=== PATIENT | male | born 1970 | race Caucasian/White ===

== ENCOUNTER → 2023-11-27 | Outpatient (CLI) | payer BC, SELFPAY ==
[2023-11-27 17:40] LABS: Absolute Neutrophil Count 4.6 X10^3/uL (2.0-7.7); Basophil# 0.08 X10^3/uL; Eosinophil# 0.37 X10^3/uL; Eosinophils% 4.6 % (0-5); Hematocrit 46.3 % (40-54); Hemoglobin 15.1 g/dL (13.0-16.5); Lymphocyte % 29.7 % (19-41); Mean Corp Hgb Conc 32.6 g/dL (32-36); Mean Corpuscular Hgb 28.8 pg (27.0-32.0); Mean Corpuscular Volume 88.4 fL (80-94); Mean Platelet Vol. 12.1 fl (6.2-12.0); Monocyte# 0.59 X10^3/uL; Monocyte% 7.3 % (0-10); NRBC Flagged by Analyzer 0 % (0-5); Neutrophil # 4.62 X10^3/uL (2.7-7.7); Neutrophil % 57.2 % (47-70); Platelet Count 235 K/mm3 (150-450); RBC Distribution Width CV 12.9 % (11.6-14.6); RBC Distribution Width SD 41.7 fl (35.1-43.9); Red Blood Count 5.24 M/mm3 (4.6-6.2); White Blood Count 8.1 K/mm3 (4.4-11.0)
[2023-11-27 18:16] LABS: ALB/GLOB Ratio 1.1 RATIO (0.9-2.4); AST(SGOT) 16 U/L (15-37); Alanine Aminotransfer ALT/SGPT 25 U/L (16-61); Albumin, Serum 3.6 g/dL (3.2-5.0); Alkaline Phosphatase 102 U/L (45-117); Anion Gap 7 (5-15); BUN 15 mg/dL (7-18); BUN/Creat Ratio 11.4 RATIO (10-20); Calcium,Total 8.7 mg/dL (8.5-10.1); Chloride 109 mmol/L (98-107); Cholesterol 189 mg/dL (200); Creatinine, Serum 1.32 mg/dL (0.70-1.30); EST Glomerular Filtration Rate 60 mL/min (>60); Est Glom Filt Rate - Afr Amer 73 mL/min (>60); Globulin 3.2 g/dL (2.2-4.2); Glucose 102 mg/dL (74-106); High Density Lipoprotein 41 mg/dL; PSA,Total - Annual Screen 0.44 ng/mL (0.00-4.00); Potassium 3.8 mmol/L (3.5-5.1); Protein, Total 6.8 g/dL (6.4-8.2); Sodium Level 141 mmol/L (136-145); Triglycerides 207 mg/dL; Very Low Density Lipoprotein 41 mg/dL (5-40)
[2023-11-27 18:31] LABS: Microalbumin,Random Urine 5.3 mg/L (NO RANGE EST.); Microalbumin:Creatinine Ratio 4.4 mg/g CRE (<30 mg/g CRE)
== END | disposition home or self-care (01) ==
LOC: MFPLAB 17:00
PROVIDERS: PCP Family Medicine; Visit Provider Family Medicine
DX: Z12.5 Encounter for screening for malignant neoplasm of prostate (principal); F17.200 Nicotine dependence, unspecified, uncomplicated; I10 Essential (primary) hypertension; Z13.220 Encounter for screening for lipoid disorders
CPT/HCPCS: 36415; 80053; 80061; 82043; 82570; 84153; 85025; G0103

== ENCOUNTER → 2024-01-11 | Outpatient (CLI) | payer BC, SELFPAY ==
--- NOTE | 2024-01-11 06:58 | CT_ITS ---
EXAM: CT CHEST, LUNG CANCER SCREENING WITHOUT INTRAVENOUS CONTRAST CLINICAL INDICATION: tobacco use, nicotine abuse TECHNIQUE: Helically acquired images were obtained of the chest without intravenous contrast using low dose (LDCT) lung cancer screening protocol. This CT exam was performed using one or more of the following dose reduction techniques: automated exposure control, adjustment of the mA and/or kV according to patient size, and/or use of iterative reconstruction technique. COMPARISON: No relevant prior studies available. FINDINGS: LUNGS AND PLEURAL SPACES: Paraseptal and centrilobular emphysematous changes of lungs are noted. No evidence of a lung mass or suspicious nodule. No pleural effusion or thickening. No pneumothorax. HEART: Normal. Heart size is normal. No pericardial effusion. No significant coronary artery calcifications. MEDIASTINUM: Normal. No mediastinal or hilar adenopathy. Esophagus is unremarkable. No hiatal hernia. THYROID: Normal. No thyroid nodules or calcification. BONES/JOINTS: No suspicious lytic or blastic abnormality. VASCULATURE: Normal. Thoracic aorta is non-dilated. LYMPH NODES: Normal. No enlarged lymph nodes. CT/Low Dose CT Lung Screening IMPRESSION: 1. No evidence of a lung mass or pulmonary nodule. 2. Pulmonary emphysema. Lung-RADS score: 1S - Negative. Additional clinically significant or potentially clinically significant findings are described. Recommend continued annual screening with a low-dose CT (LDCT) in 12 months. Electronically Signed: Jaret Rodriguez MD at 9:33 EDT ,
== END | disposition home or self-care (01) ==
PROVIDERS: PCP Family Medicine; Referring Provider Family Medicine; Visit Provider Family Medicine
DX: F17.200 Nicotine dependence, unspecified, uncomplicated (principal)
CPT/HCPCS: 71271

== ENCOUNTER 2024-03-21 06:43 | Day surgery (SDC) | payer OTHER, SELFPAY ==
[2024-03-21] VITALS (8 sets, daily range): BP systolic 85–139; BP diastolic 58–86; PULSE 65–86; RESP 16–18; TEMP 36.2–36.8; O2SAT 98–100; BMI 20.3
[2024-03-21] MEDS: Lactated Ringers 1,000 ML 15 ML IV (06:57)
--- NOTE | 2024-03-21 07:08 | H&P.OPEN ---
[facility] - General General Date of Service: 03/21/24 HPI Narrative JARED DEJESUS, is a 53 M who presents for screening colonoscopy due to family history of colon cancer. Patient had colonoscopy 5 years ago in [place] normal per patient. Patient's father diagnosed with colon cancer in his 60s. Patient has bowel movements daily denies any blood. Patient denies any chronic abdominal pain/nausea/vomiting/reflux. [facility] Medical History Broken teeth Alcohol use Blood disorder Easy bruising Smoker Chronic cough Blackout Cardiology follow-up encounter History of stress test Family history of malignant neoplasm of colon in father HTN (hypertension) Hx of colonic polyps Home Medications ?Medication ?Instructions ?Recorded ?Last Taken ?Type amlodipine 5 mg tablet 5 mg PO DAILY 01/25/24 Unknown History benazepril 10 mg tablet 10 mg PO DAILY 01/25/24 Unknown History cholecalciferol (vitamin D3) 50 50 mcg PO DAILY 03/14/24 Unknown History mcg (2,000 unit) capsule (Vitamin D3) Allergy/AdvReac Type Severity Reaction Status Date / Time No Known Allergies Allergy Verified 03/21/24 06:54 Family History Father Colon cancer Surgical History Hx of colonoscopy Social History household members: spouse current occupational status: employed 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 Smoking Status: Current every day smoker tobacco type: cigarettes alcohol intake: current details: occasional alcohol substance use type: does not use Past Medical/Surgical History Planned Operation Planned Operative Procedure(s): CSCOPE OA Previous Hospitalizations/Surgeries HX Hospitalizations: No Any Problems With Anesthesia: No You/Your Family Experience Fever (Hyperthermia) With Anes: No Cholinesterase deficiency: No Cardiovascular Hx Hypertension: Yes (CONTROLLED WITH MEDS) Respiratory Hx Sleep Apnea: No Hx Respiratory Tract Infection/Cold (presently): No Do You Snore Loudly (louder than talking or can be heard): No Do You Often Feel Tired/ Fatigued/ Sleepy Dring Daytime?: No Has Anyone Observed You Stop Breathing During Sleep?: No Result (for STOP score): Negative Smoking Status: Current every day smoker Neurological Does patient have nerve stimulator: No Reproduction : No Miscellaneous Recent Exposure to Contagious Disease: No Allergies No Known Allergies Allergy (Verified 03/21/24 06:54) Discharge Is Pt Admitted From a Longterm, or a Usp: No Who Could Help: After D/C, Where Do you Plan to Go: Return Home Vital Signs Vital Signs Vital Signs: 03/21/24 06:55 03/21/24 06:55 Temperature 98.3 F Temperature Source Temporal Pulse Rate 86 Respiratory Rate 16 Respiratory Pattern Normal Blood Pressure 139/86 H Blood Pressure Mean 103 Blood Pressure Source Monitor Blood Pressure Position Semi-Fowlers Blood Pressure Location Right Arm Pulse Ox 100 Weight Weight: 130 lb 1.164 oz Body Mass Index (BMI) 20.3 Physical Exam Const alert, oriented x3 and no apparent distress HEENT normocephalic and head/scalp atraumatic Resp normal respiratory effort Cardio regular rate GI soft to palpation and non-tender; Negative for non-distended Palpation: Negative for guarding Extremity no clubbing, cyanosis or edema Skin no rashes or lesions noted Neuro CN's II-XII intact bilaterally Psych mental status grossly normal Assessment & Plan Assessment/Plan (1) Encounter for screening for malignant neoplasm of colon: Surgery Risks - Colonoscopy I discussed with the patient the risks of the procedure: Yes Risks Include but are not Limited To: Risks include but are not limited to: Bleeding, perforation requiring further surgery, inability to complete colonoscopy requiring barium enema.
--- NOTE | 2024-03-21 07:16 | PCM.PRE.AN2 ---
ASA Classification* ASA Classification ASA Classification: 2 Assessment & Plan Anesthesia* Anesthesia Assessment Anesthesia Assessment: Discussed sedation and/or anesthesia options, risks, benefits, and alternatives with patient/parents/legal guardian/POA. Questions invited. The patient/parents/legal guardian/POA seems to understand and agrees to proceed with anesthesia plan. Reviewed the physical assessment, medical history, allergy history and patient home medications list prior to surgery/procedure/anesthetic and documented any changes. Performed airway and anesthesia risk assessments. Anesthesia Type Anesthesia Type: MAC (see written pre anesthesia record for complete assessment) Anesthesia Focused Assessment* Temperature: 98.3 F Pulse Rate: 86 Blood Pressure: 139/86 Respiratory Rate: 16 Pulse Ox: 100 Airway Assessment Mouth opens: >3 cm Mallampati Score: II Focused Labs Anesthesia Preop lab: CBC WBC 8.1 K/mm3 (4.4-11.0) 11/27/23 17:01 RBC 5.24 M/mm3 (4.6-6.2) 11/27/23 17:01 Hgb 15.1 g/dL (13.0-16.5) 11/27/23 17:01 Hct 46.3 % (40-54) 11/27/23 17:01 Plt Count 235 K/mm3 (150-450) 11/27/23 17:01 CHEMISTRY Potassium 3.8 mmol/L (3.5-5.1) 11/27/23 17:01 Sodium 141 mmol/L (136-145) 11/27/23 17:01 BUN 15 mg/dL (7-18) 11/27/23 17:01 Creatinine 1.32 mg/dL (0.70-1.30) H 11/27/23 17:01 Glucose 102 mg/dL (74-106) 11/27/23 17:01 COAG Pre-Assessment Diagnosis/Proposed Procedure Planned Operative Procedure(s): CSCOPE OA Anesthesia History Anesthesia History - frame sample and pattern supervisor: Anesthesia History - frame sample and pattern supervisor Hx Hospitalization No 03/21/24 07:09 Any Problems With Anesthesia No 03/21/24 07:09 Cholinesterase deficiency No 03/21/24 07:09 You/Your Family Experience No 03/21/24 07:09 fever (hyperthermia) with Relationship Recent Exposure to Contagious No 03/21/24 07:09 Disease Does patient have nerve No 03/21/24 07:09 stimulator Patient instructed to have device shut off --Does patient have Pacemaker No 03/21/24 06:55 or ICD? When Was Last Pacemaker Check QUESTION #4 FULL TEXT: You/Your Family Experience fever (hyperthermia) with Anesthesia Last Oral Intake Last Oral intake: Last Oral Intake NPO since Meds taken in AM with sips of water? Meds patient instructed to take am of surgery PONV PONV - frame sample and pattern supervisor: PONV - frame sample and pattern supervisor Female No 03/14/24 12:09 HX of Motion Sickness No 03/14/24 12:09 HX of N/V After Surgery No 03/14/24 12:09 Non-Smoker No 03/14/24 12:09 Duration of Surgery greater No 03/14/24 12:09 than 60 minutes Number of Risk Factors PONV Score Height & Weight Height & Weight: Anesthesia: Height & Weight Height 5 ft 7 in 03/21/24 06:55 Weight: 59 kg 03/21/24 06:55 Body Mass Index (BMI) 20.3 03/21/24 06:55 Respiratory Assessment Respiratory Assessment - frame sample and pattern supervisor: Respiratory Tract Infection Hx - frame sample and pattern supervisor Hx Respiratory Tract Infection No 03/21/24 07:09 STOP Sleep Apnea STOP Sleep Apnea - frame sample and pattern supervisor: STOP Sleep Apnea - frame sample and pattern supervisor Hx Hypertension Yes: CONTROLLED WITH MEDS 03/21/24 07:09 Hx Sleep Apnea No 03/21/24 07:09 CPAP BIPAP Do you snore loudly (louder No 03/21/24 07:09 than talking or can be heard Do you often feel tired/ No 03/21/24 07:09 fatigued/ sleepy during daytime? Has anyone observed you stop No 03/21/24 07:09 breathing during sleep? STOP Results Negative 03/21/24 07:09 QUESTION #5 FULL TEXT : Do you snore loudly (louder than talking or can be heard through closed doors)? 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 Specify any problems Hx of Preganancy in last 3 N/A 03/14/24 12:09 Months Nurse Filling Out Transfusion DSCHRIBER 03/14/24 12:09 & Questions: Date: 03/14/24 03/14/24 12:09 Time: 12:11 03/14/24 12:09 Patient unable to answer at this time (ie. confused, unrespo /Reproduction History /Reproductive History - frame sample and pattern supervisor: /Reproductive Hx- frame sample and pattern supervisor Hx Now No 03/21/24 07:09 Gestational Age (in weeks): EDC: Hx Hx Para Hx Section SAB No 03/14/24 12:09 Active Medications Active Medications: Current Medications Generic Name Dose Route Start Last Admin Trade Name Freq PRN Reason Stop Dose Admin Lactated Ringer's 1,000 mls @ 15 mls/hr 03/21/24 07:00 03/21/24 06:57 IV 15 mls/hr .Q48H BARON Administration PFSH Medical History Broken teeth Alcohol use Blood disorder Easy bruising Smoker Chronic cough Blackout Cardiology follow-up encounter History of stress test Family history of malignant neoplasm of colon in father HTN (hypertension) Hx of colonic polyps Home Medications ?Medication ?Instructions ?Recorded ?Last Taken ?Type amlodipine 5 mg tablet 5 mg PO DAILY 01/25/24 Unknown History benazepril 10 mg tablet 10 mg PO DAILY 01/25/24 Unknown History cholecalciferol (vitamin D3) 50 50 mcg PO DAILY 03/14/24 Unknown History mcg (2,000 unit) capsule (Vitamin D3) Allergy/AdvReac Type Severity Reaction Status Date / Time No Known Allergies Allergy Verified 03/21/24 06:54 Family History Father Colon cancer Surgical History Hx of colonoscopy Social History household members: spouse current occupational status: employed 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
--- NOTE | 2024-03-21 08:30 | COLBX_PTH ---
PATIENT: JARED DEJESUS Jr. LOC: EN U#:[id number] AGE/SX: 53/M ROOM: RE03/21/[address]: Dr. Sabrina Echols MD : 1970 BED: DIS: 03/21/2024 SPEC #: [id number] RECD: 03/21/24 10:08 STATUS: ALTAGRACIA MIRIAM #: [id number] ZITA: 03/21/24 08:[address]: Sabrina Echols DEPT: SURGICAL PATHOLOGY RECD BY: Jessika Packer ENTERED: 03/21/24 11:23 SP TYPE: COLON BX OTHR DR: Dr. German Baptiste MD Tissues: COLON BIOPSY Procedures: Surgery Specimen Level IV HEADER OPERATION: Colonoscopy, biopsy PRE-OP DIAGNOSIS: Encounter for screening for malignant neoplasm of colon TISSUE SUBMITTED: Rectum polyp biopsy- multiple MICROSCOPIC DIAGNOSIS Rectum polyp, biopsy: Fragment of tubular adenoma. Fragments of hyperplastic polyp. AM/mr 03/22/2024 COMMENT Case has been reviewed in consultation with Dr. Sykes who concurs with the above diagnosis. IDC:RENALDO MICROSCOPIC DESCRIPTION Slides are reviewed. GROSS DESCRIPTION Received in fixative is one container labeled with the patient's name and designated Rectum polyp. The specimen consists of multiple irregular fragments of light rhodes soft tissue that in aggregate measure 1.5 x 0.4 x 0.1 cm. The specimen is totally submitted in one cassette. RENALDO/ 03/21/2024 TC:5 CPT:71066
--- NOTE | 2024-03-21 09:00 | PCM.POST.ANE ---
Anesthesia: Postop Eval I Current Vital Signs Temperature: 97.2 F Pulse Rate: 67 Blood Pressure: 88/62 Respiratory Rate: 16 Pulse Ox: 99 Oxygen Delivery Method: Room Air Assessment Airway patent: Yes Spontaneous unlabored respirations: Yes Mental status: Asleep nausea: No Vomiting: No Anesthesia Complication: No Fluid Hydration Crystalloid volume administer (ml): 800 Total IV fluid infused: 800 Progress Note Anesthesia document: Postop Eval 1 completed: Yes
--- NOTE | 2024-03-21 09:05 | OP.COLON_ITS ---
Patient Name: Huy Negron Procedure Date: 03/21/2024 8:24 AM Date of : 1970 Age: 53 Procedure: Colonoscopy Indications: Screening in patient at increased risk: Family history of 1st-degree relative with colorectal cancer Providers: Sabrina Echols MD Referring MD: German Baptiste Medicines: Monitored Anesthesia Care Patient Profile: Last Colonoscopy: 5 years ago. Complications: No immediate complications. Procedure: Pre-Anesthesia Assessment: - Prior to the procedure, a History and Physical was performed, and patient medications and allergies were reviewed. The patient's tolerance of previous anesthesia was also reviewed. The risks and benefits of the procedure and the sedation options and risks were discussed with the patient. All questions were answered, and informed consent was obtained. Prior Anticoagulants: The patient has taken no anticoagulant or antiplatelet agents. ASA Grade Assessment: Per anesthesia. After reviewing the risks and benefits, the patient was deemed in satisfactory condition to undergo the procedure. After I obtained informed consent, the scope was passed under direct vision. Throughout the procedure, the patient's blood pressure, pulse, and oxygen saturations were monitored continuously. The Colonoscope was introduced through the anus and advanced to the cecum, identified by appendiceal orifice and ileocecal valve. The colonoscopy was performed without difficulty. The patient tolerated the procedure well. The quality of the bowel preparation was good. Scope In: 8:40:51 AM Scope Withdrawal Time 0 hours 10 minutes 40 seconds Scope Out: 8:55:33 AM Total Procedure Duration Time 0 hours 14 minutes 42 seconds Findings: The perianal and digital rectal examinations were normal. Multiple sessile polyps were found in the rectum. The polyps were less than 5 mm in size. These polyps were removed with a cold biopsy forceps. Resection and retrieval were complete. The exam was otherwise without abnormality on direct and retroflexion views. Impression: - Multiple less than 5 mm polyps in the rectum, removed with a cold biopsy forceps. Resected and retrieved. - The examination was otherwise normal on direct and retroflexion views. Recommendation: - Discharge patient to home. - Resume previous diet. - Continue present medications. - Await pathology results. - Repeat colonoscopy in 3 - 5 years for surveillance based on pathology results. Procedure Code(s): --- Professional --- 37807, PT, Colonoscopy, flexible; with biopsy, single or multiple Diagnosis Code(s): --- Professional --- Z80.0, Family history of malignant neoplasm of digestive organs D12.8, Benign neoplasm of rectum CPT copyright 2021 [employer]. All rights reserved. The codes documented in this report are preliminary and upon crown pouncer review may be revised to meet current compliance requirements. MD Sabrina Hamilton MD 03/21/2024 9:04:42 AM This report has been signed electronically. Number of Addenda: 0 Note Initiated On: 03/21/2024 8:24 AM
--- NOTE | 2024-03-21 09:05 | OP.CCLET_ITS ---
03/21/2024 German Baptiste [address] [place] [address] Re : Colonoscopy procedure for Huy Negron Dear Dr. Baptiste This procedure was performed on Thursday, March 21, 2024. My impressions and recommendations are as follows: Impressions : - Multiple less than 5 mm polyps in the rectum, removed with a cold biopsy forceps. Resected and retrieved. - The examination was otherwise normal on direct and retroflexion views. Recommendations : - Discharge patient to home. - Resume previous diet. - Continue present medications. - Await pathology results. - Repeat colonoscopy in 3 - 5 years for surveillance based on pathology results. My findings are described in the full procedure note, which is enclosed. If I can be of further assistance, please feel free to contact me at Doctor phone number(s): , Work: . Sincerely, MD Sabrina Hamilton MD 03/21/2024 9:04:42 AM This report has been signed electronically.
--- NOTE | 2024-03-21 09:37 | PCM.POSTANE2 ---
Anesthesia Postop Eval I Sum Postop Eval Completion status Anesthesia document: Postop Eval 1 completed: Yes Anesthesia Postop Eval I Summary Anesthesia Postop Eval I Summary: Anesthesia Postop Eval I: Assessment Summary Airway patent Yes 03/21/24 09:02 [email or web address] Spontaneous unlabored Yes 03/21/24 09:02 [email or web address] respirations Mental status Asleep 03/21/24 09:02 [email or web address] nausea No 03/21/24 09:02 [email or web address] Vomiting No 03/21/24 09:02 [email or web address] Anesthesia Postop Eval I: Fluid Summary Crystalloid volume administer 800 03/21/24 09:02 [email or web address] (ml) Colloids volume administered ( ml) Blood Product volume administered (ml) Total IV fluid infused 800 03/21/24 09:02 [email or web address] Anesthesia Postop Eval I: Summary Notes Anesthesia Complication No 03/21/24 09:02 [email or web address] Anesthesia Complication Comment: Post-operative progress note Anesthesia: Postop Eval II Evaluation Mental status: Awake Pain Level: 0 nausea: No Vomiting: No
== END 2024-03-21 09:36 | disposition home or self-care (01) ==
LOC: EN 06:46 → AC 06:47
PROVIDERS: PCP Family Medicine; Referring Provider Family Medicine; Visit Provider Surgery
PROC: 0DJD8ZZ Inspection of Lower Intestinal Tract, Via Natural or Artificial Opening Endoscopic (ICD-10-PCS; CPT 45378; principal; 2024-03-21 08:25)
DX: Z12.11 Encounter for screening for malignant neoplasm of colon (principal); I10 Essential (primary) hypertension; F17.210 Nicotine dependence, cigarettes, uncomplicated; Z80.0 Family history of malignant neoplasm of digestive organs; Z86.010 Personal history of colon polyps; D12.8 Benign neoplasm of rectum; Z79.899 Other long term (current) drug therapy
CPT/HCPCS: 45380; 88305; J7120; J2405

== ENCOUNTER → 2024-08-19 | Outpatient (CLI) | payer OTHER, SELFPAY ==
[2024-08-19 10:39] LABS: Anion Gap 5 (5-15); BUN 12 mg/dL (7-18); BUN/Creat Ratio 9.6 RATIO (10-20); Calcium,Total 8.9 mg/dL (8.5-10.1); Chloride 110 mmol/L (98-107); Creatinine, Serum 1.25 mg/dL (0.70-1.30); EST Glomerular Filtration Rate 64 mL/min (>60); Est Glom Filt Rate - Afr Amer 77 mL/min (>60); Glucose 85 mg/dL (74-106); Potassium 3.9 mmol/L (3.5-5.1); Sodium Level 139 mmol/L (136-145)
== END | disposition home or self-care (01) ==
LOC: MFPLAB 08:59
PROVIDERS: PCP Family Medicine; Referring Provider Family Medicine; Visit Provider Family Medicine
DX: I10 Essential (primary) hypertension (principal)
CPT/HCPCS: 36415; 80048

== ENCOUNTER → 2024-12-02 | Outpatient (CLI) | payer OTHER, SELFPAY ==
[2024-12-02 19:06] LABS: PSA,Total - Annual Screen 0.46 ng/mL (0.02-4.00)
== END | disposition home or self-care (01) ==
PROVIDERS: PCP Family Medicine
DX: Z12.5 Encounter for screening for malignant neoplasm of prostate (principal)
CPT/HCPCS: 36415; 84153; G0103

== ENCOUNTER → 2025-02-24 | Outpatient (CLI) | payer BC, SELFPAY ==
--- OUTSIDE RECORDS SUMMARY | 2025-02-24 07:37 | XMS RPT_ITS | CCD ---
Author Organization [facility] Care Team Providers [employer] Member Name Role Phone Unavailable Primary Care Provider Unavailabl e Vishnu NARAYANAN, Ramos Syed Primary Care Provider Vishnu NARAYANAN, Ramos Syed Primary Care Provider Vishnu NARAYANAN, Ramos Syed Primary Care Provider Emile NARAYANAN, Dr. Porter Primary Care Provider Emile NARAYANAN, Dr. Porter Attending Provider Emile NARAYANAN, Dr. Porter Referring Provider McMorrow PUBLIC HEALTH AIDE-C, Reese Attending Provider McMorrow PUBLIC HEALTH AIDE-C, Reese Referring Provider German Baptiste Primary Care Unavailable Baptiste, German Referring Unavailable HouSoledad vernon Attending Unavailable Baptiste, German Referring Unavailable Baptiste, German Primary Care Unavailable RobotSabrina milian Attending Unavailable Robotham, Sabrina Consulting Unavailable Baptiste, German Referring Unavailable Baptiste, German Primary Care Unavailable Robotham, Sabrina Attending Unavailable Baptiste, German Primary Care Unavailable Baptiste, German Referring Unavailable Baptiste German Attending Unavailable Baptiste, German Primary Care Unavailable McMorrow PUBLIC HEALTH AIDE Reese Referring Unavailable McMorrow PUBLIC HEALTH AIDE, Reese Attending Unavailable Baptiste, German Primary Care Unavailable Hou Soledad Referring Unavailable HouSoledad vernon Attending Unavailable Medications Current Medications Medication Drug Class(es) Dates Sig (Normalized) Sig (Original) amLODIPine 5 mg oral tablet (6 sources) Dihydropyridine Calcium Channel Becky Start: 01-25-2024 take 1 tablet by mouth once daily Amlodipine 5 mg tablet Active 5 mg PO DAILY January 25, 2024 12:00am Start: 03-17-2022 End: 09-16-2022 take 1 tablet by mouth once daily amLODIPine (NORVASC) 5 mg tablet take 1 tablet by mouth once daily 90 tablet 3 09/16/2022 Active Comment on above: Take 5 mg by mouth o nce daily. take 1 tablet by miranda th once daily benazepril hydrochloride 10 mg oral tablet (6 sources) Angiotensin Converting Enzyme Inhibitor Start: take 1 tablet by mouth once daily Benazepril 10 mg tablet Active 10 mg PO DAILY January 25, 2024 12:00am Start: 03-19-2022 End: 09-16-2022 take 1 tablet by mouth once daily benazepril (LOTENSIN) 10 mg tablet take 1 tablet by mouth once daily 90 tablet 3 09/16/2022 Active Comment on above: Take 10 mg by mouth once daily. take 1 tablet by miranda th once daily cholecalciferol 0.05 mg oral capsule (5 sources) Vitamin D Start: 03-14-20 take 1 capsule by mouth once daily Cholecalciferol (Vitamin D3) (Vitamin D3) 50 mcg (2,000 unit) capsule Active 50 ug PO DAILY March 14, 2024 12:00am Start: 11-19-2020 cholecalcifero l, vitamin D3, 125 mcg (5,000 unit) ODT Take by mouth. 0 11/19/2020 Active Comment on above: Take by mouth. Problems Active Problems Problem Classification Problem Date Documented Da te Episodic/Chronic Chronic kidney disease (7 sources) Chronic kidney disease stage 3A ; Translations: [Stage 3a chronic kidney disease (HCC)] Onset: 06-30-2022 Chronic Essential hypertension (6 sources) Benign hypertension; Translations: [Essential (primary) hypertension] Onset: 04-23-2020 Chronic Other screening for suspected conditions (not mental disorders or infectious disease) (7 sources) Patient encounter status; Translations: [Encounter for screening for diseases of the blood and blood-forming organs and certain disorders involving the immune mechanism] Onset: 04-04-2024 Episodic Peripheral and visceral atherosclerosis (2 sources) Peripheral vascular disease, unspecified; Translations: [Peripheral vascular disease, unspecified] Onset: 02-10-2025 Chronic Substance-related disorders (5 sources) Tobacco dependence syndrome; Translations: [Nicotine dependence, unspecified, uncomplicated] Onset: 04-23-2020 06-30-2022 Chronic Past or Other Problems Problem Classification Problem Date Documented Da te Episodic/Chronic Other and unspecified benign neoplasm (3 sources) Polyp of colon; Translations: [Polyp of colon] Onset: 04-17-2015 06-30-2022 Episodic Other diseases of kidney and ureters (4 sources) Renal impairment; Translations: [Disorder of kidney and ureter, unspecified] Onset: 05-29-2020 Episodic Results Test Name Value Interpretation Reference Range Facility MR/Mary Kay 02-09-2025 MR/BMSJAMILA [facility] [address] [place] [address] OFFICE VISIT Date of Service: 02/10/25 MR#: [id number] Acct: [id number] Name: JARED NEGRON Kiera Wild. Rep #: [id number] : 1970 Provider: PEYTON Bowden Age/Sex: 54/M Location: [facility] Status: Signed Intake Vital Signs 03/21/24 06:55 02/10/25 08:22 Height 5 ft 7 in Weight: 134 lb BP 124/80 H Blood Pressure Location Rt brachial Position Sitting Respiration 18 Pulse 77 Pulse Source Monitor Temp 98.2 F Temp Source Temporal Pulse Oximetry (%) 99 Oxygen Delivery Method room air Intake Visit Reasons: Claudication of calf Is patient in pain?: No Allergies No Known Allergies Allergy (Verified 02/10/25 08:22) Medications ???Medication ???Instructions ???Recorded ???Confirmed ???Type amlodipine 5 mg tablet 5 mg PO DAILY 01/25/24 02/10/25 Hi story benazepril 10 mg tablet 10 mg PO DAILY 01/25/24 02/10/25 H istory cholecalciferol (vitamin D3) 50 50 mcg PO DAILY 03/14/24 02/10/25 History mcg (2,000 unit) capsule (Vitamin D3) cilostazol 50 mg tablet 50 mg PO BID #60 tabs 02/10/25 Rx rosuvastatin 20 mg tablet 20 mg PO QDAY #30 tabs 02/10/25 Rx Have you fallen in the past year?: No PFSH Medical History (Updated 02/10/25 @ 09:07 by PEYTON Bowden) Broken teeth Alcohol use Blood disorder Easy bruising Smoker Chronic cough [facility] Cardiology follow-up encounter History of stress test Family history of malignant neoplasm of colon in father HTN (hypertension) Hx of colonic polyps Surgical History Hx of colonoscopy Family History Father Colon cancer Social History household members: spouse current occupational status: employed 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 Baptiste for evaluation of claudication. His PCP initiated pentoxifylline and also ordered ABIs and AAA screening which have not yet been completed. Over the last year, he has developed progressively worsening calf cramping/tightness/pa in with walking. These symptoms are significantly worse in the RLE compared to the LLE. He can walk about 50-100 feet before he has to stop and rest due to these symptoms. 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 He does not have any rest or nocturnal pain. He does not have persistent chronic back pain. He does not know if using a shopping cart mitigates his symptoms. He has not had any vascular testing and denies any prior vascular procedures. He does recall an episode of syncope about 10 years ago for which he reports he had workup and he thinks he was told it was from his carotid. He has not had any recent carotid testing or surve illance. He reports this workup was at [facility] in [place]. He denies any history of TIA, stroke, or stroke-like symptoms or recurrent syncope. He is a smoker with 30 year pack year history. His medical history is otherwise significant for hypertension which is well controlled on his current medications. He is not diabetic. ROS General General: No weight change, appetite, fatigue, colon cancer, breast cancer or weakness HEENT HEENT: No difficulty swallowing, eye injury, eye surgery, swollen glands or hoarseness Endo Endocrine: No thyroid disease, diabetes mellitus, thyroid cancer, Hair loss, heat intolerance or cold intolerance Additional Details: swelling LE Skin Skin: No rash or changing moles Musc Musculoskeletal: No back problems, arthritis, rheumatoid arthritis, gout or joint pain Additional Details: cramping Cardio Cardiovascular: Yes high blood pressure; No murmur, pacemaker, heart disease, atrial fibrillation, heart attack, heart stent, palpitations, shortness of breath with exertion or chest pain Psych Psychiatric: No depression, anxiety or hearing voices Resp Respiratory: No shortness of breath, No sleep apnea, No cough, No COPD, No asthma, No emphysema and No wheezing Gastro Gastrointestinal: No abdominal pain, No nausea or vomiting, No diarrhea, No constipation, No blood in stool, No acid reflux, No hemorrhoids, No ulcers, No gallbladder problem and No black,tarry stools Kwesi Hematologic: Yes blood thinners, No blood disorders, No bleeding, No anemia and No blood clots Neuro Neurologic: No system reviewed and no additional complai (more content not included)... Normal [facility] PSA, total screeningOrdered By: German Baptiste on 12-02-2024 Prostate Specific Antigen Screen 0.46 ng/mL 0.02-4.00 [facility] Comment on above: This test was perfor med using the [employer] tPSA method. Measured values of a patient sample can vary depending on the testing procedure used. PSA values determined on patient samples by different testing procedures cannot be used interchangeably. If there is a change in PSA assays while monitoring therapy, sequential testing should be performed to confirm baseline values. PSA,Total - Annual Screenon 12-02-2024 PSA,TOT SCREEN 0.46 ng/mL Normal 0.02-4.00 [facility] Comment on above: Result Comment: This test was performed using the [employer] tPSA method. Measured values of a patient??sample can vary depending on the testing procedure used. PSA values determined on patient samples by different testing procedures cannot be used interchangeably. If there is a change in PSA assays while monitoring therapy, sequential testing should be performed to confirm baseline values. Performed By: #### L 501.9910 #### [facility] [address] [place], [place], [id number] Basic Metabolic Profile (BMP )on 08-19-2024 BUN/CRE 9.6 RATIO Low 10-20 [facility] Comment on above: Performed By: #### L 500.2500 #### [facility] [address] [place], [address] CA,Total 8.9 mg/dL Normal 8.5-10.1 [facility] Comment on above: Performed By: #### L 500.2500 #### [facility] [address] [place], [address] Chloride [Moles/Vol] 110 mmol/L High 98-107 [facility] Comment on above: Performed By: #### L 500.2500 #### [facility] [address] [place], [address] CO2 [Moles/Vol] 24.0 mmol/L Normal 21.0-32.0 [facility] Comment on above: Performed By: #### L 500.2500 #### [facility] [address] [place], [address] Creatinine [Mass/Vol] 1.25 mg/dL Normal 0.70-1.30 [facility] Comment on above: Result Comment: The validity of the calculated GFR GFRAA in patients over 70 years has not been determined. Clinical correlation is essential. Performed By: #### L 500.2500 #### [facility] [address] [place], [address] EST GFR - AA 77 mL/min Normal >60 [facility] Comment on above: Result Comment: Afri can [employer] GFR Calc Performed By: #### L 500.2500 #### [facility] [address] [place], [address] GAP 5 Normal 5-15 [facility] Comment on above: Performed By: #### L 500.2500 #### [facility] [address] [place], [address] GFR/1.73 sq M.predicted among non-blacks MDRD (S/P/Bld) [Vol rate/Area] 64 mL/min/{1.73_m2} Normal >60 [facility] Comment on above: Result Comment: Non- GFR Calc Performed By: #### L 500.2500 #### [facility] [address] [place], [address] Glucose [Mass/Vol] 85 mg/dL Normal 74-106 [facility] Comment on above: Performed By: #### L 500.2500 #### [facility] [address] [place], [address] Potassium [Moles/Vol] 3.9 mmol/L Normal 3.5-5.1 [facility] Comment on above: Performed By: #### L 500.2500 #### [facility] [address] [place], [address] Sodium [Moles/Vol] 139 mmol/L Normal 136-145 [facility] Comment on above: Performed By: #### L 500.2500 #### [facility] [address] [place], [address] Urea nitrogen [Mass/Vol] 12 mg/dL Normal 7-18 [facility] Comment on above: Performed By: #### L 500.2500 #### [facility] [address] [place], [address] Blood urea nitrogen (BUN)/cr eatinine ratioOrdered By: German Baptiste on 08-19-2024 Urea nitrogen/Creatinine [Mass ratio] 9.6 mg/mg Low 10-20 [facility] Carbon dioxide measurementOr dered By: German Baptiste on 08-19-2024 CO2 [Moles/Vol] 24.0 mmol/L 21.0-32.0 [facility] Chloride measurementOrdered By: German Baptiste on 08-19-2024 Chloride [Moles/Vol] 110 mmol/L High 98-107 [facility] Estimated glomerular filtrat ion rate (GFR) AmericanOrdered By: German Baptiste on 08-19-2024 Estimated GFR (MDRD) Amer 77 mL/min >60 [facility] Comment on above: GFR Calc Glomerular filtration rate ( GFR) estimationOrdered By: German Baptiste on 08-19-2024 Estimated GFR (MDRD) Non-Af Amer 64 mL/min >60 [facility] Comment on above: Non- GFR Calc Glucose measurementOrdered B y: German Baptiste on 08-19-2024 Glucose [Mass/Vol] 85 mg/dL 74-106 [facility] Potassium measurementOrdered By: German Baptiste on 08-19-2024 Potassium [Moles/Vol] 3.9 mmol/L 3.5-5.1 [facility] Serum anion gap measurementO rdered By: German Baptiste on 08-19-2024 Anion gap [Moles/Vol] 5 mmol/L 5-15 [facility] Serum or plasma calcium russell urement (mass/volume)Ordered By: German Baptiste on 08-19-2024 Calcium [Mass/Vol] 8.9 mg/dL 8.5-10.1 [facility] Serum or plasma creatinine m easurement (mass/volume)Ordered By: German Baptiste on 08-19-2024 Creatinine [Mass/Vol] 1.25 mg/dL 0.70-1.30 [facility] Comment on above: The validity of the calculated GFR & GFRAA in patients over 70 years has not been determined. Clinical correlation is essential. Serum or plasma urea nitroge n measurement (mass/volume)Ordered By: German Baptiste on 08-19-2024 Urea nitrogen [Mass/Vol] 12 mg/dL 7-18 [facility] Sodium levelOrdered By: German Baptiste on 08-19-2024 Sodium [Moles/Vol] 139 mmol/L 136-145 [facility] Colonoscopy Reporton 024 Colonoscopy Report [facility] Medical Records Department [address] [place] [address] Colonoscopy Report MR#: [id number] Acct: [id number] Name: ANJELICAJARED Kiera Andre Rep #: [id number] : 1970 53 From: Sabrina Echols MD PCP: Dr. German Baptiste MD Status:REG SDC Patient Name: Jared Negron Procedure Date: 03/21/2024 8:24 AM Date of : 1970 Age: 53 Procedure: Colonoscopy Indications: Screening in patient at increased risk: Family history of 1st-degree relative with colorectal cancer Providers: Sabrina Echols MD Referring MD: German Baptiste Medicines: Monitored Anesthesia Care Patient Profile: Last Colonoscopy: 5 years ago. Complications: No immediate complications. Procedure: Pre-Anesthesia Assessment: - Prior to the procedure, a History and Physical was performed, and patient medications and allergies were reviewed. The patient's tolerance of previous anesthesia was also reviewed. The risks and benefits of the procedure and the sedation options and risks were discussed with the patient. All questions were answered, and informed consent was obtained. Prior Anticoagulants: The patient has taken no anticoagulant or antiplatelet agents. ASA Grade Assessment: Per anesthesia. After reviewing the risks and benefits, the patient was deemed in satisfactory condition to undergo the procedure. After I obtained informed consent, the scope was passed under direct vision. Throughout the procedure, the patient's blood pressure, pulse, and oxygen saturations were monitored continuously. The Colonoscope was introduced through the anus and advanced to the cecum, identified by appendiceal orifice and ileocecal valve. The colonoscopy was performed without difficulty. The patient tolerated the procedure well. The quality of the bowel preparation was good. Scope In: 8:40:51 AM Scope Withdrawal Time 0 hours 10 minutes 40 seconds Scope Out: 8:55:33 AM Total Procedure Duration Time 0 hours 14 minutes 42 seconds Findings: The perianal and digital rectal examinations were normal. Multiple sessile polyps were found in the rectum. The polyps were less than 5 mm in size. These polyps were removed with a cold biopsy forceps. Resection and retrieval were complete. The exam was otherwise without abnormality on direct and retroflexion views. Impression: - Multiple less than 5 mm polyps in the rectum, removed with a cold biopsy forceps. Resected and retrieved. - The examination was otherwise normal on direct and retroflexion views. Recommendation: - Discharge patient to home. - Resume previous diet. - Continue present medications. - Await pathology results. - Repeat colonoscopy in 3 - 5 years for surveillance based on pathology results. Procedure Code(s): --- Professional --- 11212, PT, Colonoscopy, flexible; with biopsy, single or multiple Diagnosis Code(s): --- Professional --- Z80.0, Family history of malignant neoplasm of digestive organs D12.8, Benign neoplasm of rectum CPT copyright 2021 [employer]. All rights reserved. The codes documented in this report are preliminary and upon aircraft stress analyst review may be revised to meet current compliance requirements. MD Sabrina Hamilton MD 03/21/2024 9:04:42 AM This report has been signed electronically. Number of Addenda: 0 Note Initiated On: 03/21/2024 8:24 AM 03/21/24904 Date Sabrina Echols MD Cosigner Signature: Date (if indicated) CC: Dr. German Baptiste MD; Dr. Sabrina Echols MD Date Dictated: 03/21/24823 Date Transcribed: Through Freight Engineer: KANDACE Rodríguez [facility] MR/POSTOP.VASQUEZ 03-21-2024 MR/POSTOP.[facility] Medical Records Department [address] [place] [address] Anesthesia Postop Eval I 03/21/24 0900 MR#: [id number] Acct: [id number] Name: JARED NEGRON Jr. Rep #: [id number] : 1970 53 From: Phoenix Urrutia PCP: Dr. German Baptiste MD Status:REG SDC Y Race: C Location: [place] [address] Anesthesia: Postop Eval I Current Vital Signs Temperature: 97.2 F Pulse Rate: 67 Blood Pressure: 88/62 Respiratory Rate: 16 Pulse Ox: 99 Oxygen Delivery Method: Room Air Assessment Airway patent: Yes Spontaneous unlabored respirations: Yes Mental status: Asleep nausea: No Vomiting: No Anesthesia Complication: No Fluid Hydration Crystalloid volume administer (ml): 800 Total IV fluid infused: 800 Progress Note Anesthesia document: Postop Eval 1 completed: Yes 03/21/24 09 Date Phoenix Tesfaye Signature: Date CC: Signed Normal [facility] MR/[id number] 03-21-2024 MR/POSTOPAN2 [facility] Medical Records Department [address] [place] [address] Anesthesia Postop Eval II 03/21/24936 MR#: [id number] Acct: [id number] Name: JARED NEGRON Kiera Wild. Rep #: [id number] : 1970 53 From: German Fatima MD PCP: Dr. German Baptiste MD Status:[facility] Y Race: C Location: [place] Anesthesia Postop Eval I Sum Postop Eval Completion status Anesthesia document: Postop Eval 1 completed: Yes Anesthesia Postop Eval I Summary Anesthesia Postop Eval I Summary: Anesthesia Postop Eval I: Assessment Summary Airway patent Yes 03/21/24 09:02 [email or web address] Spontaneous unlabored Yes 03/21/24 09:02 [email or web address] respirations Mental status Asleep 03/21/24 09:02 [email or web address] nausea No 03/21/24 09:02 [email or web address] Vomiting No 03/21/24 09:02 [email or web address] Anesthesia Postop Eval I: Fluid Summary Crystalloid volume administer 800 03/21/24 09:02 [email or web address] (ml) Colloids volume administered ( ml) Blood Product volume administered (ml) Total IV fluid infused 800 03/21/24 09:02 [email or web address] Anesthesia Postop Eval I: Summary Notes Anesthesia Complication No 03/21/24 09:02 [email or web address] Anesthesia Complication Comment: Post-operative progress note Anesthesia: Postop Eval II Evaluation Mental status: Awake Pain Level: 0 nausea: No Vomiting: No 03/21/24937 Date German Tesfaye Signature: Date CC: Signed Normal [facility] Surgery Specimen Level Scarlett 03-21-2024 Surgery Specimen Level IV -------- Patient Age/Sex Location Account Attending Physician -------- JARED NEGRON Jr. 53/M EN [id number] Dr. Sabrina Echols MD -------- Specimen: [id number] Received: 03/21/24-1008 Status: ALTAGRACIA Dougherty Num: [id number] Spec Type: COLON BX Subm Dr: Dr. Sabrina Echols MD HEADER OPERATION: Colonoscopy, biopsy PRE-OP DIAGNOSIS: Encounter for screening for malignant neoplasm of colon TISSUE SUBMITTED: Rectum polyp biopsy- multiple -------- MICROSCOPIC DIAGNOSIS Rectum polyp, biopsy: Fragment of tubular adenoma. Fragments of hyperplastic polyp. / 03/22/2024 COMMENT Case has been reviewed in consultation with Dr. Sykes who concurs with the above diagnosis. IDC:[email or web address] MICROSCOPIC DESCRIPTION Slides are reviewed. GROSS DESCRIPTION Received in fixative is one container labeled with the patient's name and designated Rectum polyp. The specimen consists of multiple irregular fragments of light rhodes soft tissue that in aggregate measure 1.5 x 0.4 x 0.1 cm. The specimen is totally submitted in one cassette. / 03/21/2024 TC:5 CPT:07605 -------- Patient Age/Sex Location Account Attending Physician -------- JARED NEGRON Jr. 53/M EN [id number] Dr. Sabrina Echols MD -------- Signed (signature on file) Dr. Marvin Zuniga, DO 03/22/24 1114 -------- Normal [facility] Comment on above: Performed By: #### P SUIV #### [facility] [address] [place] [address]. [place], [place], [address] Absolute lymphocyte countOrd ered By: German Baptiste on 11-27-2023 Lymphocytes Auto (Unsp spec) [#/Vol] 2.40 10*3/uL 0.83-4.51 [facility] Automated lymphocyte count a s percentage of total leukocytesOrdered By: German Baptiste on 11-27-2023 Lymphocytes/100 WBC Auto (Unsp spec) 29.7 % 19-41 [facility] Basophil percentageOrdered B y: German Baptiste on 11-27-2023 Basophils/100 WBC (Bld) 1.0 % 0-[address] [facility] Bilirubin [Mass/Vol] 0.40 mg/dL 0.20-1.00 [facility] Comment on above: For patients on eltr ombopag therapy, use of Dimension [place] TBIL is not recommended. Chloride [Moles/Vol] 109 mmol/L 98-107 [facility] Cholesterol [Mass/Vol] 189 mg/dL <200 [facility] Comment on above: <200 mg/dL Desirable 200-240 mg/dL Borderline >240 mg/dL High Risk Eosinophils/100 WBC (Bld) 4.6 % 0-5 [facility] Glucose [Mass/Vol] 102 mg/dL 74-106 [facility] Comment on above: Fasting Glucose resu lt from 100 to 125 mg/dL suggests IMPAIRED HOMEOSTASIS per A.D.A. criteria. Hemoglobin (Bld) [Mass/Vol] 15.1 g/dL 13.0-16.5 [facility] Monocytes/100 WBC (Bld) 7.3 % 0-[address] [facility] Neutrophils (Bld) [#/Vol] 4.6 10*3/uL 2.0-7.7 [facility] Neutrophils/100 WBC (Bld) 57.2 % 47-70 [facility] Potassium [Moles/Vol] 3.8 mmol/L 3.5-5.1 [facility] Protein [Mass/Vol] 6.8 g/dL 6.4-8.2 [facility] Sodium [Moles/Vol] 141 mmol/L 136-145 [facility] Triglyceride [Mass/Vol] 207 mg/dL <[address] [facility] Comment on above: The drugs N-Acetylcy steine and Metamizole may falsely depress this assay.Serum Triglycerides Reference Interval Normal <150 mg/dL Borderline high 150 - 199 mg/dL High 200 - 499 mg/dL Very High > or = 500 mg/dL WBC (Bld) [#/Vol] 8.1 10*3/uL 4.4-11.0 [facility] Determination of erythrocyte mean corpuscular volume (MCV)Ordered By: German Baptiste on 11-27-2023 MCV (RBC) [Entitic vol] 88.4 fL 80-[address] [facility] Erythrocyte distribution wid th ratioOrdered By: German Baptiste on 11-27-2023 Erythrocyte distribution width (RBC) [Ratio] 12.9 % 11.6-14.6 [facility] Erythrocyte distribution wid th standard deviationOrdered By: German Baptiste on 11-27-2023 Erythrocyte distribution width (RBC) [Entitic vol] 41.7 fL 35.1-43.9 [facility] Hematocrit Auto (Bld) [Volum e fraction]Ordered By: German Baptiste on 11-27-2023 Hematocrit (Bld) [Volume fraction] 46.3 % 40-54 [facility] Immature granulocytes/100 WB C Auto (Bld)Ordered By: German Baptiste on 11-27-2023 Immature granulocytes/100 WBC (Bld) 0.200 % 0.0-0.9 [facility] Comment on above: IG% - Immature Granu locytes (promyelocytes, myelocytes and metamyelocytes) > 1% indicates that a LEFT SHIFT is Present. Laboratory - Chemistry and C hemistry - challengeOrdered By: German Baptiste on 11-27-2023 Albumin/Globulin [Mass ratio] 1.1 {ratio} 0.9-2.4 [facility] ALP [Catalytic activity/Vol] 102 U/L 45-117 [facility] ALT [Catalytic activity/Vol] 25 U/L 16-61 [facility] Cholesterol in HDL [Mass/Vol] 41 mg/dL >40 [facility] Comment on above: The drugs N-Acetylcy steine and Metamizole may falsely depress this assay. Reference Range HDL <40 mg/dL Low HDL Cholesterol HDL >or= 60 mg/dL High HDL Cholesterol Cholesterol in LDL [Mass/Vol] 107 mg/dL 0-130 [facility] CO2 [Moles/Vol] 25.0 mmol/L 21.0-32.0 [facility] Globulin (S) [Mass/Vol] 3.2 g/dL 2.2-4.[address] [facility] Urea nitrogen/Creatinine [Mass ratio] 11.4 mg/mg 10-20 [facility] Laboratory - Hematology and Cell countsOrdered By: German Baptiste on 11-27-2023 MCH (RBC) [Entitic mass] 28.8 pg 27.0-32.0 [facility] MCHC (RBC) [Mass/Vol] 32.6 g/dL 32-36 [facility] Nucleated RBC/100 WBC (Bld) [Ratio] 0 % 0-5 [facility] Platelet mean volume (Bld) [Entitic vol] 12.1 fL 6.2-12.0 [facility] Platelets (Bld) [#/Vol] 235 10*3/uL 150-450 [facility] No Panel InformationOrdered By: German Baptiste on 11-27-2023 Estimated GFR (MDRD) Amer 73 mL/min >60 [facility] Comment on above: GFR Calc Estimated GFR (MDRD) Non-Af Amer 60 mL/min >60 [facility] Comment on above: Non- GFR Calc Prostate Specific Antigen Screen 0.44 ng/mL 0.00-4.00 [facility] Comment on above: This test was perfor med using the TPSA assay method for the[employer] chemistry system. Values obtained with differentassay methods cannot be used interchangably.When changing PSA assays in the course of monitoring apatient, additional sequential testing should be carriedout to confirm baseline values. Urine Microalbumin/Creatinine Ratio 4.4 mg/g CRE <30 [facility] VLDL Cholesterol 41 mg/dL 5-40 [facility] RBC Auto (Bld) [#/Vol]Ordere d By: German Baptiste on 11-27-2023 RBC (Bld) [#/Vol] 5.24 10*6/uL 4.6-6.2 [facility] Serum or plasma calcium russell urement (mass/volume)Ordered By: German Baptiste on 11-27-2023 Calcium [Mass/Vol] 8.7 mg/dL 8.5-10.1 [facility] Serum or plasma creatinine m easurement (mass/volume)Ordered By: German Baptiste on 11-27-2023 Creatinine [Mass/Vol] 1.32 mg/dL 0.70-1.30 [facility] Comment on above: The validity of the calculated GFR & GFRAA in patients over 70 years has not been determined. Clinical correlation is essential. Serum or plasma urea nitroge n measurement (mass/volume)Ordered By: German Baptiste on 11-27-2023 Urea nitrogen [Mass/Vol] 15 mg/dL 7-18 [facility] Thin prep Papanicolaou smear with manual screeningOrdered By: German Baptiste on 11-27-2023 Thin prep Papanicolaou smear with manual screening 3.6 g/dL 3.2-5.0 [facility] Thin prep Papanicolaou smear with manual screening 16 U/L 15-37 [facility] Thin prep Papanicolaou smear with manual screening 7 5-15 [facility] Thin prep Papanicolaou smear with manual screening 5.3 mg/L NO RANGE EST. [facility] Urine creatinine measurement (mass/volume)Ordered By: German Baptiste on 11-27-2023 Creatinine (U) [Mass/Vol] 121.00 mg/dL NO RANGE EST. [facility] CBC W/DIFFon 05-13-2021 BASO ABS 0.10 K/CU MM Normal 0-0.2 [facility] Comment on above: Performed By: #### L [id number] #### [facility] [place] [address] Basophils/100 WBC (Bld) 0.9 % Normal 0-2 [facility] Comment on above: Performed By: #### L 200.57158 #### [facility] [address] [place] [address] EOS ABS 0.30 K/CU MM Normal 0-0.5 [facility] Comment on above: Performed By: #### L 200.44151 #### [facility] [address] [place] [address] Eosinophils/100 WBC (Bld) 4.0 % Normal 0-5 [facility] Comment on above: Performed By: #### L 200.60777 #### [facility] [address] [place] [address] Erythrocyte distribution width (RBC) [Ratio] 13.6 % Normal 11-14.5 [facility] Comment on above: Performed By: #### L 200.21553 #### [facility] [address] [place] [address] Hematocrit (Bld) [Volume fraction] 46.7 % Normal 41.0-53.0 [facility] Comment on above: Performed By: #### L 200.40107 #### [facility] [address] [place] [address] Hemoglobin (Bld) [Mass/Vol] 15.2 g/dL Normal 13.5-17.5 [facility] Comment on above: Performed By: #### L 200.61108 #### [facility] [address] [place] [address] IMMATR GRAN ABS 0.00 K/CU MM Normal Less than 2 [facility] Comment on above: Performed By: #### L 200.93706 #### [facility] [address] [place] [address] IMMATURE GRAN % 0.4 % Normal Less than 2 [facility] Comment on above: Performed By: #### L 200.21543 #### [facility] [address] [place] [address] LYMPH ABS 1.70 K/CU MM Normal 0.9-4.4 [facility] Comment on above: Performed By: #### L 200.37489 #### [facility] [address] [place] [address] Lymphocytes/100 WBC (Bld) 21.5 % Normal 20-40 [facility] Comment on above: Performed By: #### L 200.55017 #### [facility] [address] [place] [address] MCHC (RBC) [Mass/Vol] 32.5 g/dL Normal 32.0-36.0 [facility] Comment on above: Performed By: #### L 200.90705 #### [facility] [address] [place] [address] MCV (RBC) [Entitic vol] 90.5 fL Normal 80.0-99.0 [facility] Comment on above: Performed By: #### L 200.02628 #### [facility] [address] [place] [address] MONO ABS 0.50 K/CU MM Normal 0.1-1.1 [facility] Comment on above: Performed By: #### L 200.08393 #### [facility] [address] [place] [address] Monocytes/100 WBC (Bld) 6.8 % Normal 2-10 M [facility] Comment on above: Performed By: #### L 200.86384 #### [facility] [address] [place] [address] NEUTROPHIL ABS 5.10 K/CU MM Normal 2.0-8.3 [facility] Comment on above: Performed By: #### L 200.33935 #### [facility] [address] [place] [address] Neutrophils/100 WBC (Bld) 66.4 % Normal 45-75 [facility] Comment on above: Performed By: #### L 200.66902 #### [facility] [address] [place] [address] Nucleated RBC/100 WBC (Bld) [Ratio] 0.0 % Normal Less than 1 [facility] Comment on above: Performed By: #### L 200.84292 #### [facility] [address] [place] [address] Platelet mean volume (Bld) [Entitic vol] 12.4 fL Normal 9.4-12.4 [facility] Comment on above: Performed By: #### L 200.80405 #### [facility] [address] [place] [address] PLT 192 K/CU MM Normal 150-450 [facility] Comment on above: Performed By: #### L 200.76304 #### [facility] [address] [place] [address] RBC 5.16 M/CU MM Normal 4.50-6.00 [facility] Comment on above: Performed By: #### L 200.87023 #### [facility] [address] [place] [address] WBC 7.7 K/CUMM Normal 4.5-11.0 [facility] Comment on above: Performed By: #### L 200.78910 #### [facility] [address] [place] [address] CMPon 05-13-2021 Albumin [Mass/Vol] 3.6 g/dL Normal 3.2-5.0 [facility] Comment on above: Performed By: #### L 200.43352 #### [facility] [place] [id number] Albumin/Globulin [Mass ratio] 1.3 {ratio} Normal 0.8-2.0 [facility] Comment on above: Performed By: #### L 200.92850 #### [facility] [address] [place] [address] ALK PHOS 102 U/L Normal 45-117 [facility] Comment on above: Performed By: #### L 200.98295 #### [facility] [address] [place] [address] ALT [Catalytic activity/Vol] 11 U/L Low 13-61 [facility] Comment on above: Result Comment: RESU LTS MAY BE FALSELY DEPRESSED AFTER THE ADMINISTRATION OF SULFASALAZINE AND/OR SULFAPYRIDINE. Performed By: #### L 200.29687 #### [facility] [address] [place] [address] Anion gap [Moles/Vol] 4 mmol/L Low 5-16 [facility] Comment on above: Performed By: #### L 200.55699 #### [facility] [address] [place] [address] AST [Catalytic activity/Vol] 11 U/L Normal 8-34 [facility] Comment on above: Result Comment: RESU LTS MAY BE FALSELY DEPRESSED AFTER THE ADMINISTRATION OF SULFASALAZINE AND/OR SULFAPYRIDINE. Performed By: #### L 200.28201 #### [facility] [address] [place], [place] [id number] BILI TOTAL 0.30 MG/DL Normal 0.2-1.0 [facility] Comment on above: Performed By: #### L 200.77556 #### [facility] [address] [place] [address] Calcium [Mass/Vol] 9.5 mg/dL Normal 8.5-10.5 [facility] Comment on above: Result Comment: NOTE NEW NORMAL RANGE DUE TO REAGENT CHANGE Performed By: #### L 200.21566 #### [facility] [address] [place] [address] Chloride [Moles/Vol] 110 mmol/L High 98-107 [facility] Comment on above: Performed By: #### L 200.36158 #### [facility] [address] [place] [address] CO2 [Moles/Vol] 28.0 mmol/L Normal 21-32 [facility] Comment on above: Performed By: #### L 200.12047 #### [facility] [address] [place] [address] Creatinine [Mass/Vol] 1.39 mg/dL Normal 0.5-1.4 [facility] Comment on above: Result Comment: NOTE NEW NORMAL RANGE DUE TO REAGENT CHANGE Patients receiving either N-Acetylcysteine (NAC) or Metamizole prior to venipuncture, may have falsely depressed results. Performed By: #### L 200.61318 #### [facility] [address] [place] [address] Globulin (S) [Mass/Vol] 2.8 g/dL Normal 2.2-4.2 M [facility] Comment on above: Performed By: #### L 200.01124 #### [facility] [address] [place] [address] Glucose [Mass/Vol] 98 mg/dL Normal 70-100 [facility] Comment on above: Result Comment: 70-1 00- Normal Fasting; 100-125 Impaired Fasting; greater than 126 on more than one result- Diabetes. ADA guidelines. Results may be falsely elevated after the administration of Sulfapyridine. Results may be falsely depressed after the administration of Sulfasalazine. Performed By: #### L 200.27033 #### [facility] [address] [place] [address] Potassium [Moles/Vol] 4.9 mmol/L Normal 3.5-5.1 [facility] Comment on above: Result Comment: Slig ht Hemolysis, Result may be affected. Performed By: #### L 200.97293 #### [facility] [address] [place] [address] Protein [Mass/Vol] 6.4 g/dL Normal 6.0-8.5 [facility] Comment on above: Performed By: #### L 200.91076 #### [facility] [address] [place] [address] Sodium [Moles/Vol] 141 mmol/L Normal 136-145 [facility] Comment on above: Performed By: #### L 200.89346 #### [facility] [address] [place] [address] Urea nitrogen [Mass/Vol] 25 mg/dL Normal 7-26 [facility] Comment on above: Performed By: #### L 200.35241 #### [facility] [address] [place] [address] Urea nitrogen/Creatinine [Mass ratio] 18 mg/mg Normal 15-24 [facility] Comment on above: Performed By: #### L 200.79326 #### [facility] [address] [place] [address] GFR ESTon 05-13-2021 IF AMER Greater than [address] [facility] Comment on above: Performed By: #### L 200.48492 #### [facility] [address] [place] [address] IF non-AFR AMER 54 Normal [facility] Comment on above: Performed By: #### L 200.13016 #### [facility] [address] [place] [address] LIPIDon 05-13-2021 CHOL 159 MG/dL Normal 0-199 [facility] Comment on above: Performed By: #### L 200.02721 #### [facility] [place] [address] Cholesterol in HDL [Mass/Vol] 41 mg/dL Normal GREATER THAN 40 [facility] Comment on above: Result Comment: Arabella ents receiving Metamizole prior to venipuncture, may have falsely depressed results. Performed By: #### L 200.75116 #### [facility] [place] [address] Cholesterol in LDL [Mass/Vol] 103 mg/dL Normal [facility] Comment on above: Result Comment: ___C HOLESTEROL/HDL RATIO RISK___ CHD RISK = Total CHOL LDL HDL (CHOL/HDL) Recommended <200 <130 >40 <3.4 Borderline 200-239 130-159 3.4-4.99 High >240 >160 >5.0 Performed By: #### L 200.49667 #### [facility] [address] [place] [address] Triglyceride [Mass/Vol] 72 mg/dL Normal 30-149 M [facility] Comment on above: Result Comment: Arabella ents receiving either N-Acetylcysteine (NAC) or Metamizole prior to venipuncture, may have falsely depressed results. Performed By: #### L 200.44039 #### [facility] [address] [place] [address] PSA SCREENon 05-13-2021 PSA SCREEN 0.31 NG/ML Normal 0.0-4.0 [facility] Comment on above: Performed By: #### L 200.31531 #### [facility] [address] [place] [address] BMPon 08-13-2020 Anion gap [Moles/Vol] 4 mmol/L Low 5-16 [facility] Comment on above: Performed By: #### L 500.90822, L500.77946, L550.74555, L500.06597, L500.18762, L500.52043 #### [facility] [place] [address] Calcium [Mass/Vol] 9.6 mg/dL Normal 8.5-10.5 [facility] Comment on above: Result Comment: NOTE NEW NORMAL RANGE DUE TO REAGENT CHANGE Performed By: #### L 500.26732, L500.60193, L550.80452, L500.71518, L500.83909, L500.10704 #### [facility] [place] [id number] Chloride [Moles/Vol] 103 mmol/L Normal 98-107 [facility] Comment on above: Performed By: #### L 500.41332, L500.84686, L550.62031, L500.00736, L500.07073, L500.08442 #### [facility] [place] [address] CO2 [Moles/Vol] 27.0 mmol/L Normal 21-32 [facility] Comment on above: Performed By: #### L 500.51042, L500.79523, L550.33228, L500.38925, L500.11148, L500.53045 #### [facility] [address] [place] [address] Creatinine [Mass/Vol] 1.21 mg/dL Normal 0.5-1.4 [facility] Comment on above: Result Comment: NOTE NEW NORMAL RANGE DUE TO REAGENT CHANGE Patients receiving either N-Acetylcysteine (NAC) or Metamizole prior to venipuncture, may have falsely depressed results. Performed By: #### L 500.47400, L500.76322, L550.74500, L500.38152, L500.17153, L500.18195 #### [facility] [address] [place] [address] Glucose [Mass/Vol] 96 mg/dL Normal 70-100 [facility] Comment on above: Result Comment: 70-1 00- Normal Fasting; 100-125 Impaired Fasting; greater than 126 on more than one result- Diabetes. ADA guidelines. Results may be falsely elevated after the administration of Sulfapyridine. Results may be falsely depressed after the administration of Sulfasalazine. Performed By: #### L 500.92557, L500.05999, L550.25820, L500.12367, L500.03210, L500.04444 #### [facility] [address] [place], [place] [address] Potassium [Moles/Vol] 4.8 mmol/L Normal 3.5-5.1 [facility] Comment on above: Result Comment: Slig ht Hemolysis, Result may be affected. Performed By: #### L 500.66467, L500.54400, L550.59322, L500.60190, L500.92264, L500.27004 #### [facility] [place] [address] Sodium [Moles/Vol] 134 mmol/L Low 136-145 [facility] Comment on above: Performed By: #### L 500.63795, L500.06721, L550.00439, L500.57610, L500.23484, L500.32383 #### [facility] [address] [place] [address] Urea nitrogen [Mass/Vol] 19 mg/dL Normal 7-26 [facility] Comment on above: Performed By: #### L 500.02113, L500.60483, L550.42336, L500.25621, L500.98849, L500.11915 #### [facility] [address] [place] [address] Urea nitrogen/Creatinine [Mass ratio] 16 mg/mg Normal 15-24 [facility] Comment on above: Performed By: #### L 500.55175, L500.10375, L550.01469, L500.41862, L500.26949, L500.82974 #### [facility] [address] [place], [place] [address] CBCon 08-13-2020 Erythrocyte distribution width (RBC) [Ratio] 13.8 % Normal 11-14.5 [facility] Comment on above: Performed By: #### L 200.23036 #### [facility] [address] [place], [place] [address] Hematocrit (Bld) [Volume fraction] 46.4 % Normal 41.0-53.0 [facility] Comment on above: Performed By: #### L 200.54461 #### [facility] [address] [place] [address] Hemoglobin (Bld) [Mass/Vol] 15.5 g/dL Normal 13.5-17.5 [facility] Comment on above: Performed By: #### L 200.47919 #### [facility] [address] [place] [address] MCHC (RBC) [Mass/Vol] 33.4 g/dL Normal 32.0-36.0 [facility] Comment on above: Performed By: #### L 200.08699 #### [facility] [address] [place] [address] MCV (RBC) [Entitic vol] 88.4 fL Normal 80.0-99.0 [facility] Comment on above: Performed By: #### L 200.49178 #### [facility] [address] [place] [address] Nucleated RBC/100 WBC (Bld) [Ratio] 0.0 % Normal Less than 1 [facility] Comment on above: Performed By: #### L 200.22501 #### [facility] [address] [place], [place] [address] Platelet mean volume (Bld) [Entitic vol] 11.6 fL Normal 9.4-12.4 [facility] Comment on above: Performed By: #### L 200.22625 #### [facility] [address] [place], [place] [address] PLT 229 K/CU MM Normal 150-450 [facility] Comment on above: Performed By: #### L 200.71064 #### [facility] [address] [place], [place] [address] RBC 5.25 M/CU MM Normal 4.50-6.00 [facility] Comment on above: Performed By: #### L 200.80628 #### [facility] [address] [place] [address] WBC 8.1 K/CUMM Normal 4.5-11.0 [facility] Comment on above: Performed By: #### L 200.63460 #### [facility] [address] [place] [address] Abiel 08-13-2020 FERR 149.1 NG/ML Normal 24.0-388.0 [facility] Comment on above: Performed By: #### L 500.73219, L500.46385, L550.94312, L500.61738, L500.46199, L500.15970 #### [facility] [address] [place] [address] GFR ESTon 08-13-2020 IF AMER Greater than [address] [facility] Comment on above: Performed By: #### L 500.90550, L500.03840, L550.14171, L500.39551, L500.27958, L500.28527 #### [facility] [address] [place] [address] IF non-AFR AMER Greater than [address] [facility] Comment on above: Performed By: #### L 500.52038, L500.62687, L550.41399, L500.24394, L500.20676, L500.39844 #### [facility] [address] [place], [place] [address] IRON PANELon 08-13-2020 Iron [Mass/Vol] 97 ug/dL Normal 65-175 [facility] Comment on above: Result Comment: Arabella ents treated with metal-binding drugs (e.g.deferoxamine) may have depressed iron values, as chelated iron may not properly react in the Siemens iron assay. Performed By: #### L 500.74888, L500.84674, L550.22491, L500.26726, L500.12633, L500.21601 #### [facility] [place] [address] IRON SAT 29 % Low 30-44 [facility] Comment on above: Performed By: #### L 500.73505, L500.73328, L550.18353, L500.44770, L500.36266, L500.14069 #### [facility] [address] [place] [address] TIBC 333 UG/DL Normal 221-481 [facility] Comment on above: Performed By: #### L 500.97045, L500.86048, L550.04160, L500.17234, L500.36215, L500.76273 #### [facility] [address] [place] [address] PTH INTACTon 08-13-2020 PTH INTACT 58.4 PG/ML Normal 14-72 [facility] Comment on above: Performed By: #### L 200.58898 #### [facility] [address] [place] [address] UA COMPLETEon 08-13-2020 Color (U) COLORLESS Normal [facility] Comment on above: Performed By: #### L 600.18376 #### [facility] [address] [place], [place] [address] Glucose (U) [Mass/Vol] Negative Normal NORMAL [facility] Comment on above: Performed By: #### L 600.58890 #### [facility] [address] [place] [address] UA APPEARANCE Clear Normal CLEAR [facility] Comment on above: Performed By: #### L 600.87627 #### [facility] [address] [place], [place] [address] UA BILIRUBIN Negative Normal NEGATIVE [facility] Comment on above: Performed By: #### L [id number] #### [facility] [place] [address] UA BLOOD Negative Normal NEGATIVE [facility] Comment on above: Performed By: #### L [id number] #### [facility] [address] [place] [address] UA KETONE Negative Normal NEGATIVE [facility] Comment on above: Performed By: #### L [id number] #### [facility] [address] [place] [address] [id number] UA LK ESTERASE Negative Normal NEGATIVE [facility] Comment on above: Performed By: #### L [id number] #### [facility] [address] [place] [address]83 UA NITRITE Negative Normal NEGATIVE [facility] Comment on above: Performed By: #### L [id number] #### [facility] [address] [place] [address] [id number] UA PH 6.0 Normal 5-6 [facility] Comment on above: Performed By: #### L [id number] #### [facility] [address] [place] [address] [id number] UA PROTEIN Negative Normal NEGATIVE [facility] Comment on above: Performed By: #### L 600.82526 #### [facility] [address] [place] [address] 42995 UA SPEC GRAV 1.001 Normal 1.005-1.030 [facility] Comment on above: Performed By: #### L 600.59211 #### [facility] [address] [place] [address] [id number] UA UROBILINOGEN Negative Normal NORMAL [facility] Comment on above: Performed By: #### L 600.54888 #### [facility] [address] [place] [address] [id number] UR PROT/CREA RAon 08-13-2020 UR CREAT RANDOM 10.60 MG/DL Low 40.00-278.00 [facility] Comment on above: Performed By: #### L 600.05827 #### [facility] [address] [place] [address] UR KY/CRE RATIO 94.1974 MG/G CRE Normal 0-200 [facility] Comment on above: Performed By: #### L 600.20636 #### [facility] [address] [place] [address] [id number] UR PROT RANDOM LESS THAN 1.0 Normal 0-12 [facility] Comment on above: Performed By: #### L 600.30865 #### [facility] [address] [place] [id number] # [phone] URIC ACIDon 08-13-2020 Urate [Mass/Vol] 5.4 mg/dL Normal 2.6-6.0 [facility] Comment on above: Result Comment: Slig ht Hemolysis, Result may be affected. Patients receiving Metamizole prior to venipuncture, may have falsely depressed results. Performed By: #### L 500.64985, L500.76745, L550.18704, L500.49399, L500.42557, L500.84457 #### [facility] [address] [place] [address] 36005 US KIDNEYon 08-13-2020 US KIDNEY US KIDNEY Ordering Physician: Ivy Williamson MD 08/13/2020 1:10 PM ULTRASOUND KIDNEYS Clinical Statement: Chronic kidney disease stage III Comparison: None FINDINGS: The kidneys appear normal in size, contour and echotexture. The renal cortical echotexture and thickness is appropriate for age. The lower pole of the right kidney is partially obscured by adjacent bowel. There is no nephrolithiasis, discrete renal cortical mass, or perinephric fluid. There is mild left renal pelvocaliectasis which resolves on post void imaging. No secondary signs of obstructive uropathy. The right and left kidneys measure 8.3 x 4.5 x 4.7 cm and 10.1 x 6.0 x 4.0 cm respectively. Size discrepancy is likely related to poor visualization of the lower pole right kidney. Pre and post void bladder volumes are 430 cc and 100 cc respectively. Bladder wall appears smooth and maintained. No intraluminal bladder mass or bladder stones. Bilateral ureteral jets are noted indicating patency of the distal ureters. IMPRESSION: Mild left renal pelviectasis which resolves on post void imaging, therefore physiologic and not related to obstructive uropathy. Otherwise, negative renal ultrasound. Please note, the lower pole right kidney was obscured by bowel artifact. Post void bladder residual volume of 100 cc. ---- Electronic Signature on File ---- Signed By: Phoenix Rodrigues MD [email or web address] Dictated: 08/13/2020 1:37 PM Signed: 08/13/2020 1:43 PM Reported By: PHOENIX RODRIGUES M.D. Signed By: PHOENIX RODRIGUES M.D. Normal [facility] [id number] 08-13-2020 [id number] 12.9 NG/ML Low 30.0-100.0 [facility] Comment on above: Result Comment: Defi ciency Less than 20 ng/mL Insufficiency 20 - Less than 30 ng/mL Sufficiency 30 - 100 ng/mL Performed By: #### L 200.64352 #### [facility] [address] [place] [address]# [phone] Vital Signs Date Time Vital Sign Value Performing Clinician Faci lity 06-30-2022 16:18-0400 Body height 172.7 cm Ramos Mares MD Work Phone: [facility] 06-30-2022 16:18-0400 Body temperature 96.91 [degF] Ramos Mares MD Work Phone: [facility] 06-30-2022 16:18-0400 Body weight 59.24 kg Ramos Mares MD Work Phone: [facility] 06-30-2022 16:18-0400 Diastolic blood pressure 70 mm[Hg] Ramos Mares MD Work Phone: [facility] 06-30-2022 16:18-0400 Heart rate 75 /min Ramos Mares MD Work Phone: [facility] 06-30-2022 16:18-0400 Respiratory rate 14 /min Ramos Mares MD Work Phone: [facility] 06-30-2022 16:18-0400 SaO2% (BldA) [Mass fraction] 99 % Ramos Mares MD Work Phone: [facility] 06-30-2022 16:18-0400 Systolic blood pressure 120 mm[Hg] Ramos Mares MD Work Phone: [facility] 11-11-2021 08:20-0500 Body temperature 94.6 [degF] [facility] 11-11-2021 08:20-0500 Body weight 60.39 kg [facility] 11-11-2021 08:20-0500 Diastolic blood pressure 79 mm[Hg] [facility] 11-11-2021 08:20-0500 Heart rate 83 /min [facility] 11-11-2021 08:20-0500 Respiratory rate 14 /min [facility] 11-11-2021 08:20-0500 Systolic blood pressure 125 mm[Hg] [facility] Encounters Encounter Date Encounter Type Care Provider Facility Start: 02-24-2025 laurent Baptiste Facility:[facility] Start: 02-10-2025 End: 02-10-2025 ambulatory German Baptiste Facility:[facility] Start: 12-02-2024 End: 12-02-[address] German Baptiste MD Work Phone: [facility] Work Phone: Start: 12-02-2024 End: 12-02-2024 Patient encounter procedure Reese Baumann NP-C -[facility] Start: 12-02-2024 End: 12-02-2024 ambulatory German Baptiste Facility:[facility] Start: 08-19-2024 End: 08-19-[address] German Baptiste MD -Laboratory, [facility] Start: 08-19-2024 End: 08-19-2024 ambulatory German Baptiste Facility:[facility] Start: 03-21-2024 End: 03-21-2024 ambulatory Germanjulio Baptiste Facility:[facility] Start: 01-11-2024 End: 01-11-2024 ambulatory [facility] Work Phone: Start: 01-11-2024 End: 01-11-2024 Patient encounter procedure [facility]-Cat Scan, [facility] Work Phone: Start: 11-27-2023 End: 11-27-2023 ambulatory [facility] Work Phone: Start: 11-27-2023 End: 11-27-2023 Patient encounter procedure [facility]-Laboratory, [facility] Start: 09-14-2023 Refill Ramos Shirley MD Work Phone: [facility] Comment on above: Refill Request Start: 09-14-2022 Refill Ramos Shirley MD Work Phone: [facility] Comment on above: Refill Request Start: 06-30-2022 End: 06-30-2022 Periodic preventive med est patient 40-64yrs Ramos Mares MD Work Phone: [facility] Comment on above: Renal insufficiency syndrome (Primary Dx); Hypertension, benign; Screening for deficiency anemia; Stage 3a chronic kidney disease (HCC); Screening PSA (prostate specific antigen); Lipid screening Start: 05-29-2022 Chart abstracting Historical Pain Management Procedures Date Procedure Procedure Detail Performing Clinician Start: 01-11-2024 CT of chest Start: 05-13-2021 Lipid 1996 panel - S bebeto or Plasma Ramos Mares MD Work Phone: Plan of Treatment Date Care Activity Detail Author Start: 06-30-2031 Urine microalbumin profile DTaP,Tdap,Td Vaccine (2 - Td or Tdap) [facility] Start: 05-13-2026 Lipid panel Lipid Screening [facility] Start: 05-13-2026 LIPID SCREEN LIPID SCREEN [facility] Start: 05-13-2024 DIABET[facility]CREEN [facility] Start: 05-13-2024 Diabetes Screening Diabetes Screenin g [facility] Start: 06-30-2023 ANNUAL PCP TEAM GLASS INSERTER ADDIE DISEASE VISIT ANNUAL PCP TEAM CHRONIC DISEASE VISIT [facility] Start: 06-30-2023 BP CONTROLLED (<130/80) BP CONTROLLE D (<130/80) [facility] Start: 05-22-2023 Influenza vaccination Influenza Vacc ine (#1) [facility] Start: 09-21-2022 Depression Assessment Depression Ass essment [facility] Start: 06-30-2022 End: 08-30-2022 CBC W Auto Differential panel - Blood CBC + DIFF Lab Routine Screening for deficiency anemia Stage 3a chronic kidney disease (HCC) Expected: 06/30/2022, Expires: 08/30/2022 [facility] Work Phone: Comment on above: Expected: 06/30/2022 , Expires: 08/30/2022 Start: 06-30-2022 End: 08-30-2022 Comprehensive metabolic 2000 panel - Serum or Plasma COMP METABOLIC PANEL Lab Routine Hypertension, benign Expected: 06/30/2022, Expires: 08/30/2022 [facility] Work Phone: Comment on above: Expected: 06/30/2022 , Expires: 08/30/2022 Start: 06-30-2022 End: 08-30-2022 Lipid 1996 panel - Serum or Plasma LIPID PANEL BASIC Lab Routine Lipid screening Expected: 06/30/2022, Expires: 08/30/2022 [facility] Work Phone: Comment on above: Expected: 06/30/2022 , Expires: 08/30/2022 Start: 06-30-2022 End: 08-30-2022 PSA/PROSTSPECAG SCRN PSA/PROSTSPECAG SCRN Lab Routine Screening PSA (prostate specific antigen) Expected: 06/30/2022, Expires: 08/30/2022 [facility] Work Phone: Comment on above: Expected: 06/30/2022 , Expires: 08/30/2022 Start: 05-22-2022 Influenza vaccination INFLUENZA (#1) [facility] Start: 05-13-2022 Complete blood count Hemoglobin/Kwesi tocrit [facility] Start: 05-13-2022 Creatinine measurement Serum Creatin ine [facility] Start: 05-13-2022 HEMOGLOBIN/HEMATOCRIT HEMOGLOBIN/HEM ATOCRIT [facility] Start: 05-13-2022 SERUM CREATININE SERUM CREATININE Cl [facility] Start: 12-20-2019 Influenza vaccination LUNG CANCER [facility] Start: 12-20-2019 SHINGRIX VACCINE (1 of 2) SHINGRIX VACCINE (1 of 2) [facility] Start: 2014 COLOGUARD (FIT-DNA) COLOGUARD (FIT-D NA) [facility] Start: 2014 Colonoscopy COLONOSCOPY [facility] Start: 2014 COLORECTAL CANCER SCREENING COLORECTAL CANCER SCREENING [facility] Start: [address] COLONOGRAPHY [facility] Start: 2014 FECAL OCCULT BLOOD FECAL OCCULT BLOO D [facility] Start: 2014 Screening for malign ant neoplasm of colon [facility] Start: 2014 SIGMOIDOSCOPY SIGMOIDOSCOPY [facility] Start: 1988 Urine microalbumin profile DTAP,TDAP,TD (1 - Tdap) [facility] Start: 12-20-1987 BP Controlled (<130/80) BP Controlle d (<130/80) [facility] Start: 12-20-1987 HEPATITIS C SCREENING HEPATITIS C [facility] Start: 12-20-1987 Hepatitis C screening Hepatitis C [facility] Start: 12-20-1987 HIV SCREENING HIV SCREENING [facility] Start: 12-20-1987 HIV screening HIV Screening [facility] Start: 1981 Adult depression screening assessment DEPRESSION SCREENING [facility] Start: 12-20-1975 PNEUMOCOCCAL (1 - PCV) PNEUMOCOCCAL (1 - PCV) [facility] Start: 12-20-1975 Pneumococcal vaccination Pneum ococcal Vaccine (1 of 2 - PCV) [facility] Start: 06-20-1970 COVID-19 VACCINE (#1) COVID-19 VACCI NE (#1) [facility] Start: 1969 HEPATITIS B (1 of 3 - 3-dose series) HEPATITIS B (1 of 3 - 3-dose series) [facility] Start: 1969 Hepatitis B Vaccine (1 of 3 - 3-dose series) Hepatitis B Vaccine (1 of 3 - 3-dose series) [facility] Payers Date Payer Category Payer Self-pay 2024 Unknown [id number] 2021 Unknown [employer]UN RM PPO [id number] 2021-Present [phone] [id number] [place] [address] PPO [id number] Unknown [id number] Unknown [id number] Unknown [id number] Unknown [id number] Unknown [id number] Unknown [id number] Social History Date Type Detail Facility Tobacco smoking stat us RIIS Tobacco smoking consumption unknown [facility] Start: 1970 Sex Assigned At Not on file [facility] Start: 06-30-2022 End: 03-21-2024 Tobacco smoking status RIIS Smokes tobacco daily [facility] History of tobacco use Cigarette Smoker [facility] Start: 06-30-2022 End: 10-17-2022 Cigarettes smoked current (pack per day) - Reported 1 [facility] History of tobacco use Passive smoker [facility] Start: 06-30-2022 Tobacco use and exposure Smokeless tobacco non-user [facility] Start: 06-30-2022 Alcohol intake Current drinker of alcohol (finding) [facility] Start: 06-30-2022 History SDOH Alcohol Frequency 3 [facility] Start: 06-30-2022 History SDOH Alcohol Std Drinks 2 [facility] Start: 06-30-2022 History SDOH Social Connections Phone 5 [facility] Start: 06-30-2022 History SDOH Social Connections Uatsdin 1 [facility] Start: 06-30-2022 History SDOH Social Connections Living 8 [facility] Start: 06-30-2022 Education 11 [facility] Start: 06-30-2022 Alcohol Comment socially drinks beer [facility] Start: 06-20-2022 End: 06-30-2022 Exposure to SARS-CoV-2 (event) Not sure [facility] Start: 06-30-2022 End: 10-17-2022 Social connection and isolation panel [facility] Do you belong to any clubs or organizations such as anglican groups, unions, fraternal or athletic groups, or school groups? No [facility] Are you now , , , , never or living with a partner? Living with partner [facility] How often to you hav e a drink containing alcohol? 2-4 times a month [facility] How many standard dr inks containing alcohol do you have on a typical day? 3 or 4 [facility] How often do you hav e 6 or more drinks on 1 occasion? Less than monthly [facility] How hard is it for y ou to pay for the very basics like food, housing, medical care, and heating Not hard at all [facility] Do you feel stress - tense, restless, nervous, or anxious, or unable to sleep at night because your mind is troubled all the time - these days [OSQ] Not at all [facility] (I/We) worried bibi er (my/our) food would run out before (I/we) got money to buy more. Never true [facility] Start: 06-30-2022 Gender identity Identifies as male gender (finding) [facility] Start: 1970 Sex Assigned At Male [facility] Start: 12-13-2024 Sex Male (finding) [facility] Clinical Note 03-21-2024 Note Date & Type Note Facility 03-21-2024 Note [facility] Medical Records Department [address] [place] [address] History Physical Exam 03/21/24 0708 MR#: [id number] Acct: [id number] Name: JARED NEGRON Jr. Rep #: [id number] : 1970 53 From: Sabrina Echols MD PCP: Dr. German Baptiste MD Status:[facility] Location: [place] [address] HPI - General General Date of Service: 03/21/24 HPI Narrative JARED NEGRON, is a 53 M who presents for screening colonoscopy due to family history of colon cancer. Patient had colonoscopy 5 years ago in [place] normal per patient. Patient's father diagnosed with colon cancer in his 60s. Patient has bowel movements daily denies any blood. Patient denies any chronic abdominal pain/nausea/vomiting/reflux. [facility] Medical History Broken teeth Alcohol use Blood disorder Easy bruising Smoker Chronic cough Blackout Cardiology follow-up encounter History of stress test Family history of malignant neoplasm of colon in father HTN (hypertension) Hx of colonic polyps Home Medications ???Medication ???Instructions ???Recorded ???Last Taken ???Type amlodipine 5 mg tablet 5 mg PO DAILY 01/25/24 Unknown History benazepril 10 mg tablet 10 mg PO DAILY 01/25/24 Unknown History cholecalciferol (vitamin D3) 50 50 mcg PO DAILY 03/14/24 Unknown History mcg (2,000 unit) capsule (Vitamin D3) Allergy/AdvReac Type Severity Reaction Status Date / Time No Known Allergies Allergy Verified 03/21/24 06:54 Family History Father Colon cancer Surgical History Hx of colonoscopy Social History household members: spouse current occupational status: employed 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 Smoking Status: Current every day smoker tobacco type: cigarettes alcohol intake: current details: occasional alcohol substance use type: does not use Past Medical/Surgical History Planned Operation Planned Operative Procedure(s): CSCOPE OA Previous Hospitalizations/Surgeries HX Hospitalizations: No Any Problems With Anesthesia: No You/Your Family Experience Fever (Hyperthermia) With Anes: No Cholinesterase deficiency: No Cardiovascular Hx Hypertension: Yes (CONTROLLED WITH MEDS) Respiratory Hx Sleep Apnea: No Hx Respiratory Tract Infection/Cold (presently): No Do You Snore Loudly (louder than talking or can be heard): No Do You Often Feel Tired/ Fatigued/ Sleepy Dring Daytime?: No Has Anyone Observed You Stop Breathing During Sleep?: No Result (for STOP score): Negative Smoking Status: Current every day smoker Neurological Does patient have nerve stimulator: No Reproduction : No Miscellaneous Recent Exposure to Contagious Disease: No Allergies No Known Allergies Allergy (Verified 03/21/24 06:54) Discharge Is Pt Admitted From a Fdc, or a Skilled Nursing: No Who Could Help: After D/C, Where Do you Plan to Go: Return Home Vital Signs Vital Signs Vital Signs: 03/21/24 06:55 03/21/24 06:55 Temperature 98.3 F Temperature Source Temporal Pulse Rate 86 Respiratory Rate 16 Respiratory Pattern Normal Blood Pressure 139/86 H Blood Pressure Mean 103 Blood Pressure Source Monitor Blood Pressure Position Semi-Fowlers Blood Pressure Location Right Arm Pulse Ox 100 Weight Weight: 130 lb 1.164 oz Body Mass Index (BMI) 20.3 Physical Exam Const alert, oriented x3 and no apparent distress HEENT normocephalic and head/scalp atraumatic Resp normal respiratory effort Cardio regular rate GI soft to palpation and non-tender; Negative for non-distended Palpation: Negative for guarding Extremity no clubbing, cyanosis or edema Skin no rashes or lesions noted Neuro CN's II-XII intact bilaterally Psych mental status grossly normal Assessment Plan Assessment/Plan (1) Encounter for screening for malignant neoplasm of colon: Surgery Risks - Colonoscopy I discussed with the patient the risks of the procedure: Yes Risks Include but are not Limited To: Risks include but are not limited to: Bleeding, perforation requiring further surgery, inability to complete colonoscopy requiring barium enema. 03/21/24 0815 Cosigner Signature (if applicable): CC: Dr. German Baptiste MD; Dr. Sabrina Echols MD Signed [facility] Note 09-16-2022 Telephone Encounter - Candi Rankin LPN - 09/16/2022 9:18 AM EST Note Date & Type Note Facility 09-16-2022 Miscellaneous Notes Formattin g of this note is different from the original. Last office visit 06-30-2022 Requested Prescriptions Pending Prescriptions Disp Refills amLODIPine (NORVASC) 5 mg tablet [Pharmacy Med Name: AMLODIPINE BESYLATE 5 MG TAB] 90 tablet 3 Sig: take 1 tablet by mouth once daily benazepril (LOTENSIN) 10 mg tablet [Pharmacy Med Name: BENAZEPRIL HCL 10 MG TABLET] 90 tablet 3 Sig: take 1 tablet by mouth once daily Candi Rankin LPN September 16, 2022 9:22 AM documented in this encounter [facility] History of Present illness Narrative 06-30-2022 Ramos Mares MD - 06/30/2022 4:39 PM EDT Note Date & Type Note Facility 06-30-2022 History of Presen t illness Narrative This note was created using Match. Subjective Jared Negron is a 51 year old male. Plan presents today for yearly wellness exam. Review of Systems Constitutional: Negative. HENT: Negative. Eyes: Negative. Respiratory: Negative. Cardiovascular: Negative. Gastrointestinal: Negative. Endocrine: Negative. Genitourinary: Negative. Musculoskeletal: Negative. Skin: Negative. Allergic/Immunologic: Negative. Neurological: Negative. Hematological: Negative. Psychiatric/Behavioral: Negative. Objective BP 120/70 (BP Site: Right Arm, BP Position: Sitting) Pulse 75 Temp 36.1 C (96.9 F) (Temporal) Resp 14 Ht 172.7 cm (5' 8) Wt 59.2 kg (130 lb 9.6 oz) SpO2 99% BMI 19.86 kg/m Physical Exam Vitals reviewed. Constitutional: Appearance: Normal appearance. HENT: Head: Normocephalic and atraumatic. Nose: Nose normal. Eyes: Extraocular Movements: Extraocular movements intact. Pupils: Pupils are equal, round, and reactive to light. Cardiovascular: Rate and Rhythm: Normal rate and regular rhythm. Pulmonary: Effort: Pulmonary effort is normal. Breath sounds: Normal breath sounds. Abdominal: General: Bowel sounds are normal. Palpations: Abdomen is soft. Musculoskeletal: General: Normal range of motion. Cervical back: Normal range of motion and neck supple. Skin: General: Skin is warm and dry. Capillary Refill: Capillary refill takes less than 2 seconds. Neurological: General: No focal deficit present. Mental Status: He is alert and oriented to person, place, and time. Mental status is at baseline. Psychiatric: Mood and Affect: Mood normal. Behavior: Behavior normal. Assessment and Plan Jared was seen today for yearly exam. Diagnoses and all orders for this visit: Renal insufficiency syndrome Hypertension, benign - COMP METABOLIC PANEL; Future Screening for deficiency anemia - CBC + DIFF; Future Stage 3a chronic kidney disease (HCC) - CBC + DIFF; Future Screening PSA (prostate specific antigen) - PSA/PROSTSPECAG SCRN; Future Lipid screening - LIPID PANEL BASIC; Future Other orders - DEPRESSION SCREENING/ASSESSMENT documented in this encounter [facility] Evaluation note Note Date & Type Note Facility Evaluation note Diagnosis Renal insufficiency syndrome- Primary Unspecified disorder of kidney and ureter Hypertension, benign Essential hypertension, benign Screening for deficiency anemia Screening for other and unspecified deficiency anemia Stage 3a chronic kidney disease (HCC) Screening PSA (prostate specific antigen) Special screening for malignant neoplasm of prostate Lipid screening Screening for lipoid disorders documented in this encounter [facility] Evaluation note Note Date & Type Note Facility Evaluation note No assessment information availa ble [facility] Work Phone: Reason for referral (narrative) Note Date & Type Note Facility Reason for referral (narrative) No reason for referral information available [facility] Work Phone: Summary Purpose Family History No Family History Records Found Relationship Condition Age at Onset Recorded Date/T tena father Malignant neoplasm of colon Unknown Advance Directives No Advanced Directives Records FoundNo Advanced Directives Records Found Chief Complaint and Reason for Visit Chief Complaint NICOTINE DEPENDENCE Additional Source Comments (unrecognized sect ion and content) No Status Records FoundNo Status Records Found INFORMATION SOURCE (unrecogn ized section and content) DATE CREATED AUTHOR 06/08/2021 [facility] Donte Yun DATE CREATED AUTHOR AUTHOR'S ORGANIZ ATION 02/23/2025 [facility] Source Comments (unrecognize d section and content) In the event this informatio n is protected by the Federal Confidentiality of Alcohol and Drug Abuse Patient Records regulations: The Federal rules restrict any use of the information to criminally investigate or prosecute any alcohol or drug abuse patient.[facility] the event this information is protected by the Federal Confidentiality of Alcohol and Drug Abuse Patient Records regulations: The Federal rules restrict any use of the information to criminally investigate or prosecute any alcohol or drug abuse patient.[facility] the event this information is protected by the Federal Confidentiality of Alcohol and Drug Abuse Patient Records regulations: The Federal rules restrict any use of the information to criminally investigate or prosecute any alcohol or drug abuse patient.[facility] the event this information is protected by the Federal Confidentiality of Alcohol and Drug Abuse Patient Records regulations: The Federal rules restrict any use of the information to criminally investigate or prosecute any alcohol or drug abuse patient.[facility] Reason for Visit (unrecogniz ed section and content) Reason Comments Yearly Exam Wellness CPE Reason Comments Refill Request Care Teams (unrecognized sec tion and content) [employer] Member Relationship Specialty Start Date End Date Ramos Mares MD [address] [place], [place] [id number] PCP - General Family Medicine 06/26/22 [employer] Member Relationship Specialty Start Date End Date Ramos Mares MD [address] [place], [place] [id number] PCP - General Family Medicine 06/26/22 [employer] Member Relationship Specialty Start Date End Date Ramos Mares MD [address] [place], [place] [id number] PCP - General Family Medicine 06/26/22 Team Status: Active Member Role Status Dates Dr. German Baptiste MD Primary Care Provider Active Team Status: Inactive Member Role Status Dates Dr. German Baptiste MD Primary Care Provider, Attending Chiara fam Active Team Status: Inactive Member Role Status Dates Dr. German Baptiste MD Primary Care Provide r, Attending Provider, Referring Provider Active Team Status: Inactive Member Role Status Dates Dr. German Baptiste MD Primary Care Provider Active Start: August 19, 2024 End: August 19, 2024 Dr. German Baptiste MD Attending Provider Active St art: August 19, 2024 End: August 19, 2024 Dr. German Baptiste MD Referring Provider Active St art: August 19, 2024 End: August 19, 2024 Team Status: Inactive Member Role Status Dates Dr. German Baptiste MD Primary Care Provider Active Start: December 02, 2024 End: December 02, 2024 Reese Baumann NP [facility] Attending Provider Active Start: December 02, 2024 End: December 02, 2024 Reese Baumann NP, NP-C Referring Provider Active Start: December 02, 2024 End: December 02, 2024 Goals (unrecognized section and content) Goals may be documented in a n alternate sectionGoals may be documented in an alternate sectionGoals may be documented in an alternate section FOR RECORDS PERTAINING TO PATIENTS WHO ARE OR HAVE BEEN ENROLLED IN A CHEMICAL DEPENDENCY/SUBSTANCEABUSE PROGRAM, SOME INFORMATION MAY BE OMITTED. This clinical summary was aggregated from multiple sources. Caution should be exercised in using it in the provision of clinical care. This summary normalizes information from multiple sources, and as a consequence, information in this document may materially change the coding, format and clinical context of patient data. In addition, data may be omitted in some cases. CLINICAL DECISIONS SHOULD BE BASED ON THE PRIMARY CLINICAL RECORDS. [facility]. provides no warranty or guarantee of the accuracy or completeness of information in this document.
--- NOTE | 2025-02-24 07:38 | ART_ITS ---
Reason For Study Reason For Study: Claudication Procedure A bilateral lower extremity continuous wave Doppler with analog waveform analysis,segmental pressures,and ankle brachial indexes with exercise. Left Segmental Pressures Left brachial= 103mmHg. Left high thigh = 93mmHg. Left low thigh = 91mmHg. Left calf = 63mmHg. Left posterior tibial artery = 75mmHg. Left dorsalis pedis artery = 59mmHg. Left digit = 48 mmHg. The left posterior tibial artery waveforms are biphasic. The left dorsalis pedis waveforms are monophasic. Right Segmental Pressures Right brachial= 109mmHg. Right high thigh = 93mmHg. Right low thigh = 72mmHg. Right calf = 79mmHg. Right posterior tibial artery = 76mmHg. Right dorsalis pedis artery = 75mmHg. Right digit = 57 mmHg. The right posterior tibial artery waveforms are monophasic. The right dorsalis pedis waveforms are monophasic. Indices The right ankle brachial index by the posterior tibial artery is 0.70. The right ankle brachial index by the dorsalis pedis is 0.69. The right digital-brachial index is 0.52. The right ankle brachial index by the posterior tibial artery post exercise is 0.23. The left ankle brachial index by the posterior tibial artery is 0.69. The left ankle brachial index by the dorsalis pedis is 0.54. The left digital-brachial index is 0.44. The left posterior tibial artery index post exercise is 0.28. VL/Lower Ext Art Exam w/ Exercise Interpretation Summary Right GOYO 0.7, moderate arterial insufficiency. Doppler/PVR waveforms and segme ntal pressures reveal aorto-iliac and proximal femoral disease. Right lower extremity with abnormal response to exercise and post exercise GOYO in the severe category. Left GOYO 0.69, moderate arterial insufficiency. Doppler/PVR waveforms and segme ntal pressures reveal aorto-iliac and distal SFA/popliteal disease Left lower extremity with abnormal response to exercise and post exercise GOYO i n the severe category. Ordering Physician: Soledad Hou Referring Physician: German Baptiste MD Performed By: Perry Mcclendon RVT
--- NOTE | 2025-02-24 07:38 | AAAS_ITS ---
Reason For Study Reason For Study: AAA Screening Aorta Measurements Aorta Doppler Measurements Proximal aorta measures2.07 x 2.10cm. in cross-sectional Peak systolic flow velocities within the proximal aorta axis. measure 61.9 cm/sec. Proximal aorta measures2.31cm. in longitudinal axis. Peak systolic flow velocities within the mid aorta measure Mid aorta measures1.38 x 1.51cm. in cross-sectional axis. 83.9 cm/sec. Mid aorta measures1.39cm. in longitudinal axis. Peak systolic flow velocities within the distal aorta Distal aorta measures1.72 x 1.47cm. in cross-sectional axis.measure 97.0 cm/sec. Distal aorta measures1.44cm. in longitudinal axis. Left Iliac Artery Left iliac artery measures 0.85 x 0.86 cm. in the cross-sectional axis. Left iliac artery measures 0.83 cm. in the longitudinal axis. Peak systolic velocity in the left iliac artery measures 71.1 cm/sec. Right Iliac Artery Right iliac artery measures 0.76 x 0.85 cm. in the cross-sectional axis. Right iliac artery measures 0.79 cm. in the longitudinal axis. Peak systolic velocity in the right iliac artery measures 90.4 cm/sec. Procedure Aorta IVC Iliac vasculature or bypass grafts 60462. The exam was diagnostic. Exam performed in department. VL/AAA Screening Interpretation Summary Aorta patent, normal caliber. Bilateral iliac arteries patent, normal caliber. Ordering Physician: Soledad Hou Referring Physician: German Baptiste MD Performed By: Perry Mcclendon RVT
== END | disposition home or self-care (01) ==
LOC: CVS 07:35
PROVIDERS: PCP Family Medicine; Referring Provider Physician Assistant; Visit Provider Physician Assistant
DX: I10 Essential (primary) hypertension (principal); I73.9 Peripheral vascular disease, unspecified; F17.200 Nicotine dependence, unspecified, uncomplicated
CPT/HCPCS: 76706; 93924